=== PATIENT | male | born 1960 | race Hispanic/Latino ===

== ENCOUNTER 2018-10-26 10:12 | Emergency (ER) | payer SELFPAY ==
--- NOTE | 2018-10-26 11:00 | RAD REPORT ---
EXAM DESCRIPTION: CT - Head Brain Wo Cont - 10/26/2018 10:48 am CLINICAL HISTORY: Right-sided facial and eye lid droop for 2 days COMPARISON: None. TECHNIQUE: Axial 5 mm thick images of the head were obtained without IV contrast. All CT scans are performed using dose optimization technique as appropriate and may include automated exposure control or mA/KV adjustment according to patient size. FINDINGS: No intracranial hemorrhage, mass, edema or shift of mid-line structures. No acute infarcti on changes seen. No abnormal extra-axial fluid collections. Ventricles are normal. Physiologic and ar terial calcifications are present. No significant atrophy or chronic ischemic change. Mastoid air cells and visualized portions of the paranasal sinuses are clear. No acute bony findings. IMPRESSION: Negative non-contrast CT head examination for acute finding.
[2018-10-26] MEDS ORDERED: FLUORESCEIN SODIUM 1 MG/WRAP ONE (11:30)
[2018-10-26] MEDS ORDERED: TETRACAINE HCL 0.5% 4ML OPTH ONE (11:30)
--- NOTE | 2018-10-26 11:32 | ER ---
Nurse's Notes [facility] Name: Steven Mejia Age: 58 yrs Sex: Male : 1960 Arrival Date: 10/26/2018 Time: 10:16 Bed 18 Private MD: Diagnosis: Hernandez's palsy Presentation: 10/26 10:36 Presenting complaint: Patient states: right eyelid droop X 2 days, denies vision iw problem, denies weakness or numbness in face, denies weakness in extremities. Transition of care: patient was not received from another setting of care. Onset of symptoms was October 24, 2018. Risk Assessment: Do you want to hurt yourself or someone else? Patient reports no desire to harm self or others. Initial Sepsis Screen: Does the patient meet any 2 criteria? No. Patient's initial sepsis screen is negative. Does the patient have a suspected source of infection? No. Patient's initial sepsis screen is negative. Care prior to arrival: None. 10:36 Method Of Arrival: Ambulatory iw 10:36 Acuity: UZAIR 4 iw Historical: - Allergies: 10:38 No Known Allergies; iw - PMHx: 10:38 Diabetes - IDDM; iw - PSHx: 10:38 None; iw - Immunization history:: Adult Immunizations not up to date. - Social history:: Smoking status: Patient/guardian denies using tobacco. - Ebola Screening: : Patient negative for fever greater than or equal to 101.5 degrees Fahrenheit, and additional compatible Ebola Virus Disease symptoms Patient denies exposure to infectious person Patient denies travel to an Ebola-affected area in the 21 days before illness onset No symptoms or risks identified at this time. Screenin:45 Abuse screen: Denies threats or abuse. Nutritional screening: No deficits noted. em Tuberculosis screening: No symptoms or risk factors identified. Fall Risk None identified. Assessment: 10:45 General: Appears in no apparent distress. comfortable, Behavior is calm, cooperative, em Denies fever. Pain: Complains of pain in right eye Pain does not radiate. Pain currently is 2 out of 10 on a pain scale. Neuro: Level of Consciousness is awake, alert, obeys commands, Oriented to person, place, time, situation, Tosser are equal bilaterally Moves all extremities. Gait is steady, Speech is normal, Facial symmetry appears normal, Pupils are PERRLA, Intact Reports right eyelid droop . Denies weakness dizziness, difficulty swallowing, headache. Cardiovascular: Capillary refill < 3 seconds Patient's skin is warm and dry. Respiratory: Airway is patent Respiratory effort is even, unlabored, Respiratory pattern is regular, symmetrical. GI: Patient currently denies nausea, vomiting. EENT: Eyes droop on right eyelid . Oral mucosa is moist. Denies difficulty swallowing. Derm: Skin is intact, is healthy with good turgor, Skin is pink, warm \T\ dry. Musculoskeletal: Capillary refill < 3 seconds, Range of motion: intact in all extremities. 11:12 Reassessment: Patient appears in no apparent distress at this time. Patient and/or em family updated on plan of care and expected duration. Pain level reassessed. Patient is alert, oriented x 3, equal unlabored respirations, skin warm/dry/pink. Vital Signs: 10:38 BP 120 / 82; Pulse 80; Resp 16; Temp 98.2; Pulse Ox 96% on R/A; Pain 0/10; iw 11:57 BP 114 / 78; Pulse 76; Resp 14; Pulse Ox 97% on R/A; Pain 2/10; em Visual Acuity: 11:12 Left Eye Visual acuity 20/50, Pupil size 3 mm, ; Right Eye Visual acuity 20/50, Pupil em size 3 mm, ; Both Eyes Visual acuity 20/50; Without Lenses; ED Course: 10:16 Patient arrived in ED. mr 10:30 Bertin Mccarthy, MARCELINA is PHCP. pm1 10:30 Beau Araujo MD is Attending Physician. pm1 10:32 Frank Saez LVN is Primary Nurse. em 10:38 Triage completed. iw 10:39 Arm band placed on. iw 10:45 Patient has correct armband on for positive identification. Bed in low position. Call em light in reach. Adult w/ patient. Pulse ox on. NIBP on. 10:48 CT completed. Patient tolerated procedure well. Patient moved back from CT. mw3 10:48 CT Head Brain wo Cont In Process Unspecified. EDMS 11:56 No provider procedures requiring assistance completed. Patient did not have IV access em during this emergency room visit. Administered Medications: 11:20 Drug: Decadron 10 mg Route: IM; Site: right deltoid; em 11:38 Follow up: Response: No adverse reaction em 11:30 Drug: Tetracaine Drops 0.5 % 1 drops Route: Ophthalmic; Site: right eye; em Outcome: 11:31 Discharge ordered by . pm1 11:56 Discharged to home ambulatory, with family. em 11:56 Condition: good 11:56 Discharge instructions given to patient, family, Instructed on discharge instructions, follow up and referral plans. medication usage, Demonstrated understanding of instructions, follow-up care, medications, Prescriptions given X 2. 11:58 Patient left the ED. em Signatures: Dispatcher [employer] EDJanett Goff, Frank, PIER MASTER ASSISTANT PIER MASTER ASSISTANT em Shira Rapp RN RN iw Marinas, Patrick, NP [facility] pm1 Cindy Lee mw3
--- NOTE | 2018-10-26 11:32 | EDPHYS ---
Physician Documentation [facility] Name: Steven Mejia Age: 58 yrs Sex: Male : 1960 Arrival Date: 10/26/2018 Time: 10:16 Bed 18 Private MD: ED Physician Beau Araujo HPI: 10/26 11:30 This 58 yrs old Male presents to ER via Ambulatory with complaints of Right pm1 Eye Problem. 11:30 The patient is experiencing inability to open right eye lid, right eyelid drooping. pm1 Onset: The symptoms/episode began/occurred 2 day(s) ago. Duration: the symptoms are continuous. Aggravated by nothing. Alleviated by nothing. Associated signs and symptoms: Pertinent negatives: chills, ear ache, fever, headache, runny nose. Patient does not utilize any form of vision correction. Severity of symptoms: in the emergency department the symptoms are unchanged. The patient has not experienced similar symptoms in the past. The patient has not recently seen a physician, the patient's primary care provider is Dr. Indira crocker. No focal weakness, numbness, tingling. Historical: - Allergies: 10:38 No Known Allergies; iw - PMHx: 10:38 Diabetes - IDDM; iw - PSHx: 10:38 None; iw - Immunization history:: Adult Immunizations not up to date. - Social history:: Smoking status: Patient/guardian denies using tobacco. - Ebola Screening: : Patient negative for fever greater than or equal to 101.5 degrees Fahrenheit, and additional compatible Ebola Virus Disease symptoms Patient denies exposure to infectious person Patient denies travel to an Ebola-affected area in the 21 days before illness onset No symptoms or risks identified at this time. ROS: 11:30 Constitutional: Negative for fever, chills, and weight loss. pm1 11:30 ENT: Negative for injury, pain, and discharge, Neck: Negative for injury, pain, and swelling, Cardiovascular: Negative for chest pain, palpitations, and edema, Respiratory: Negative for shortness of breath, cough, wheezing, and pleuritic chest pain, Abdomen/GI: Negative for abdominal pain, nausea, vomiting, diarrhea, and constipation, Back: Negative for injury and pain, MS/Extremity: Negative for injury and deformity, Skin: Negative for injury, rash, and discoloration, Patient with chronic wound on right foot that he is currently taking antibiotic therapy for Neuro: Negative for headache, weakness, numbness, tingling, and seizure. 11:30 Eyes: Positive for drooping right eyelid, Negative for discharge, matting, pain, swelling, vision loss, visual disturbance. Exam: 11:30 Visual Acuity: I have reviewed the nursing documentation. pm1 11:30 Constitutional: This is a well developed, well nourished patient who is awake, alert, and in no acute distress. Head/Face: Normocephalic, atraumatic. 11:30 ENT: Nares patent. No nasal discharge, no septal abnormalities noted. Tympanic membranes are normal and external auditory canals are clear. Oropharynx with no redness, swelling, or masses, exudates, or evidence of obstruction, uvula midline. Mucous membranes moist. Neck: Trachea midline, no thyromegaly or masses palpated, and no cervical lymphadenopathy. Supple, full range of motion without nuchal rigidity, or vertebral point tenderness. No Meningismus. Chest/axilla: Normal chest wall appearance and motion. Nontender with no deformity. No lesions are appreciated. Cardiovascular: Regular rate and rhythm with a normal S1 and S2. No gallops, murmurs, or rubs. Normal PMI, no JVD. No pulse deficits. Respiratory: Lungs have equal breath sounds bilaterally, clear to auscultation and percussion. No rales, rhonchi or wheezes noted. No increased work of breathing, no retractions or nasal flaring. Abdomen/GI: Soft, non-tender, with normal bowel sounds. No distension or tympany. No guarding or rebound. No evidence of tenderness throughout. Back: No spinal tenderness. No costovertebral tenderness. Full range of motion. Skin: Warm, dry with normal turgor. Normal color with no rashes, no lesions, and no evidence of cellulitis. MS/ Extremity: Pulses equal, no cyanosis. Neurovascular intact. Full, normal range of motion. 11:30 Eyes: Periorbital structures: appear normal, Pupils: no acute changes, Extraocular movements: intact throughout, Conjunctiva: no acute changes, no chemosis, no excoriation, no exudate, no injection, no subconjunctival hemorrhage no abnormal tearing, Corneas: abrasion, is not appreciated, foreign body, is not appreciated, a fluorescein strip employed to appreciate the findings, Sclera: no appreciated abnormality, Lids and lashes: ptosis, of the right eye. 11:30 Neuro: Orientation: is normal, Motor: is normal, moves all fours, Sensation: is normal, no obvious gross deficits, right sided forehead sparing, Gait: is steady, at a normal pace, without difficulty. Vital Signs: 10:38 BP 120 / 82; Pulse 80; Resp 16; Temp 98.2; Pulse Ox 96% on R/A; Pain 0/10; iw 11:57 BP 114 / 78; Pulse 76; Resp 14; Pulse Ox 97% on R/A; Pain 2/10; em Visual Acuity: 11:12 Left Eye Visual acuity 20/50, Pupil size 3 mm, ; Right Eye Visual acuity 20/50, Pupil em size 3 mm, ; Both Eyes Visual acuity 20/50; Without Lenses; MDM: 10:30 Patient medically screened. pm1 11:30 Data reviewed: vital signs. Data interpreted: Pulse oximetry: on room air is 96 %. pm1 Interpretation: normal. Counseling: I had a detailed discussion with the patient and/or guardian regarding: the historical points, exam findings, and any diagnostic results supporting the discharge/admit diagnosis, radiology results, the need for outpatient follow up, a neurologist, to return to the emergency department if symptoms worsen or persist or if there are any questions or concerns that arise at home. 10/26 10:36 Order name: CT Head Brain wo Cont; Complete Time: 11:00 pm1 10/26 10:36 Order name: Visual Acuity; Complete Time: 11:11 pm1 10/26 11:09 Order name: Eye Tray; Complete Time: 11:11 pm1 10/26 11:09 Order name: Fluoresene Opth strip; Complete Time: 11:11 pm1 Administered Medications: 11:20 Drug: Decadron 10 mg Route: IM; Site: right deltoid; em 11:38 Follow up: Response: No adverse reaction em 11:30 Drug: Tetracaine Drops 0.5 % 1 drops Route: Ophthalmic; Site: right eye; em Disposition: 10/26/18 11:31 Discharged to Home. Impression: Hernandez's palsy. - Condition is Stable. - Discharge Instructions: Hernandez Palsy, Adult. - Prescriptions for Prednisone 20 mg Oral Tablet - take 3 tablets by ORAL route once daily for 5 days Take 3 tablets by mouth once daily for 5 days, then 2 tablets by mouth daily for 3 days, then 1 tablets by mouth for 2 days; 23 tablet. Valtrex 1 g Oral Tablet - take 1 tablet by ORAL route every 8 hours for 5 days; 15 tablet. - Medication Reconciliation Form, Thank You Letter, Antibiotic Education, Prescription Opioid Use form. - Follow up: Emergency Department; When: As needed; Reason: Worsening of condition. Follow up: Private Physician; When: 2 - 3 days; Reason: Recheck today's complaints, Continuance of care, Re-evaluation by your physician. - Problem is new. - Symptoms have improved. Addendum: 10/30/2018 02:11 Co-signature as Attending Physician, Beau Araujo MD. m a2 Signatures: Dispatcher [employer] EDFrank Harvey, QUALITY LIAISON QUALITY LIAISON em Shira Rapp RN RN iw Bertin Mccarthy NP [employer] RESEARCHER pm1 Beau Araujo MD MD ma2 Corrections: (The following items were deleted from the chart) 10/26 11:58 11:31 10/26/2018 11:31 Discharged to Home. Impression: Hernandez's palsy. Condition is em Stable. Discharge Instructions: Hernandez Palsy, Adult. Prescriptions for Prednisone 20 mg Oral Tablet - take 3 tablets by ORAL route once daily for 5 days Take 3 tablets by mouth once daily for 5 days, then 2 tablets by mouth daily for 3 days, then 1 tablets by mouth for 2 days; 23 tablet, Valtrex 1 g Oral Tablet - take 1 tablet by ORAL route every 8 hours for 5 days; 15 tablet. and Forms are Medication Reconciliation Form, Thank You Letter, Antibiotic Education, Prescription Opioid Use. Follow up: Emergency Department; When: As needed; Reason: Worsening of condition. Follow up: Private Physician; When: 2 - 3 days; Reason: Recheck today's complaints, Continuance of care, Re-evaluation by your physician. Problem is new. Symptoms have improved. pm1
[2018-10-26] MEDS ORDERED: dexAMETHasone 10 MG/ML VIAL ONE (11:33)
== END 2018-10-26 11:58 | disposition home or self-care (01) ==
LOC: ER 10:12
DX: G51.0 Bell's palsy (principal); E11.9 Type 2 diabetes mellitus without complications
CPT/HCPCS: 70450; 96372; 99284; J1100

== ENCOUNTER 2022-11-26 07:26 | Emergency (ER) | payer OTHER, SELFPAY ==
--- OUTSIDE RECORDS SUMMARY | 2022-11-26 07:33 | XMS REPORT | Continuity of Care Document ---
:1960 Author Organization [facility] t Address [address] [place] [address] Care Team Providers Name Role Phone Sanaz Tidwell Primary Care Physician [phone] Problems This patient has no known problems. Allergies, Adverse Reactions, Alerts This patient has no known allergies or adverse reactions. Medications Ordered Filled Start Stop Current Ordering Indication Dosage Frequency Signature Comments Components Source Medication Medication Date Date Medication? Clinician (SIG) Name Name TAKE 2021-04 No unit TABLET 2-14 DAILY. 00:00: 00 INJECT 33 2021-04 No UNITS SC 2-14 BEFORE 00:00: MEALS 00 Dose 2021- No Unknown 2-14 00:00: 00 LEVEMIR 100 2021-04 No UNIT/ML 2-14 VIAL 00:00: 00 BYDUREON 2021-04 No BCISE 2 MG 2-14 AUTOINJECT 00:00: 00 GLIMEPIRIDE 2021-04 No 4 MG TABLET 2-14 00:00: 00 &lt 2021-0 No 25 8-08 00:00: 00 &lt 2021-0 No 8-08 00:00: 00 TAKE 1 2021-0 No 4 TABLET BY 8-08 MOUTH TWICE 00:00: DAILY WITH 00 BREAKFAST AND WITH SUPPER LISINOPRIL 0 No 2.5 MG 8-08 TABLET 00:00: 00 METFORMIN 2021-0 No HCL 1,000 8-08 MG TABLET 00:00: 00 TAKE 1 0 No 4 TABLET BY 8-08 MOUTH TWICE 00:00: DAILY WITH 00 BREAKFAST AND WITH SUPPER Bydureon No 2mg/0.8 BCise 2 5-24 5 mL mg/0.85 mL 00:00: subcutaneou 00 s auto-inject or Dose 2-0 No Unknown 5-24 00:00: 00 Levemir 2022-0 No unit/mL U-100 5-24 Insulin 100 00:00: unit/mL 00 subcutaneou s solution Levemir 2022-0 No unit/mL U-100 5-24 Insulin 100 00:00: unit/mL 00 subcutaneou s solution Novolin R 2022-0 No unit/mL Regular 5-24 U-100 00:00: Insulin 100 00 unit/mL injection solution Novolin R 2022-0 No unit/mL Regular 5-24 U-100 00:00: Insulin 100 00 unit/mL injection solution rosuvastati 2-0 No 1mg n 20 mg 5-24 tablet 00:00: 00 Dose 2022-0 No Unknown 5-24 00:00: 00 metformin 2022-0 No 1mg 1,000 mg 5-24 tablet 00:00: 00 glimepiride 2022-0 No 1mg 4 mg tablet 5-24 00:00: 00 glimepiride 2022-0 No 1mg 4 mg tablet 5-24 00:00: 00 metformin 2022-0 No 1mg 1,000 mg 5-24 tablet 00:00: 00 Dose 2022-0 No Unknown 5-24 00:00: 00 Bydureon 2022-0 No 2mg/0.8 BCise 2 5-24 5 mL mg/0.85 mL 00:00: subcutaneou 00 s auto-inject or Dose 2-0 No Unknown 5-24 00:00: 00 Levemir 2022-0 No unit/mL U-100 5-24 Insulin 100 00:00: unit/mL 00 subcutaneou s solution Levemir 2022-0 No unit/mL U-100 5-24 Insulin 100 00:00: unit/mL 00 subcutaneou s solution Novolin R 2022-0 No unit/mL Regular 5-24 U-100 00:00: Insulin 100 00 unit/mL injection solution Dose 2022-0 No Unknown 5-24 00:00: 00 rosuvastati 2022-0 No 1mg n 20 mg 5-24 tablet 00:00: 00 Dose 2022-0 No Unknown 5-24 00:00: 00 metformin 2022-0 No 1mg 1,000 mg 5-24 tablet 00:00: 00 glimepiride 2022-0 No 1mg 4 mg tablet 5-24 00:00: 00 metformin 2022-0 No 1mg 1,000 mg 5-24 tablet 00:00: 00 Dose 2022-0 No 20 Unknown 5-24 00:00: 00 Dose 2022-0 No Unknown 5-24 00:00: 00 rosuvastati 2022-0 No 1mg n 20 mg 4-09 tablet 00:00: 00 rosuvastati 2022-0 No 1mg n 20 mg 4-09 tablet 00:00: 00 Levemir 2022-0 No unit/mL U-100 1-19 Insulin 100 00:00: unit/mL 00 subcutaneou s solution Novolin R 2-0 No unit/mL Regular 1-19 U-100 00:00: Insulin 100 00 unit/mL injection solution Levemir 2-0 No unit/mL U-100 1-19 Insulin 100 00:00: unit/mL 00 subcutaneou s solution Dose 2-0 No Unknown 1-19 00:00: 00 Dose 2022-0 No Unknown 1-18 00:00: 00 Dose 2-0 No Unknown 1-18 00:00: 00 Dose 2-0 No Unknown 1-12 00:00: 00 Levemir 2022-0 No unit/mL U-100 1-12 Insulin 100 00:00: unit/mL 00 subcutaneou s solution Novolin R 2022-0 No unit/mL Regular 1-12 U-100 00:00: Insulin 100 00 unit/mL injection solution Dose 2-0 No Unknown 1-12 00:00: 00 metformin 2022-0 No 1mg 1,000 mg 1-12 tablet 00:00: 00 glimepiride 2-0 No 1mg 4 mg tablet 1-12 00:00: 00 Dose 2022-0 No Unknown 1-12 00:00: 00 Levemir 2022-0 No unit/mL U-100 1-12 Insulin 100 00:00: unit/mL 00 subcutaneou s solution Dose 2-0 No Unknown 1-12 00:00: 00 Dose 2022-0 No Unknown 1-12 00:00: 00 metformin 2-0 No 1mg 1,000 mg 1-12 tablet 00:00: 00 Dose 2022-0 No 20 Unknown 1-12 00:00: 00 Dose 2021-0 No Unknown 01-11 00:00: 00 Dose 2021-0 No Unknown 01-11 00:00: 00 Levemir 2021-0 No unit/mL U-100 9-16 Insulin 100 00:00: unit/mL 00 subcutaneou s solution Novolin R 2021-0 No unit/mL Regular 9-16 U-100 00:00: Insulin 100 00 unit/mL injection solution lisinopril 2021-0 No 1mg 2.5 mg 9-16 tablet 00:00: 00 rosuvastati 2021-0 No 1mg n 20 mg 9-16 tablet 00:00: 00 glimepiride 2021-0 No 1mg 4 mg tablet 16 00:00: 00 metformin 2021-0 No 1mg 1,000 mg 9-16 tablet 00:00: 00 Levemir 2021-0 No unit/mL U-100 9-16 Insulin 100 00:00: unit/mL 00 subcutaneou s solution Dose 1-0 No Unknown 01-05 00:00: 00 lisinopril 2021-0 No 1mg 2.5 mg 9-16 tablet 00:00: 00 rosuvastati 2021-0 No 1mg n 20 mg 9-16 tablet 00:00: 00 glimepiride 2021-0 No 1mg 4 mg tablet 16 00:00: 00 metformin 2021-0 No 1mg 1,000 mg 9-16 tablet 00:00: 00 Levemir 2021-0 No unit/mL U-100 8-12 Insulin 100 00:00: unit/mL 00 subcutaneou s solution Levemir 2021-0 No unit/mL U-100 8-12 Insulin 100 00:00: unit/mL 00 subcutaneou s solution Levemir 2021-0 No unit/mL U-100 4-06 Insulin 100 00:00: unit/mL 00 subcutaneou s solution Novolin R 2021-0 No unit/mL Regular 4-06 U-100 00:00: Insulin 100 00 unit/mL injection solution rosuvastati 2021-0 No 1mg n 20 mg 4-06 tablet 00:00: 00 lisinopril 2021-0 No 1mg 2.5 mg 4-06 tablet 00:00: 00 glimepiride 2021-0 No 1mg 4 mg tablet 4-06 00:00: 00 Levemir 2021-0 No unit/mL U-100 4-06 Insulin 100 00:00: unit/mL 00 subcutaneou s solution Dose 2020-0 No Unknown 4-06 00:00: 00 rosuvastati 2021-0 No 1mg n 20 mg 4-06 tablet 00:00: 00 lisinopril 2021-0 No 1mg 2.5 mg 4-06 tablet 00:00: 00 glimepiride 2021-0 No 1mg 4 mg tablet 06 00:00: 00 Levemir 2021-0 No unit/mL U-100 3-22 Insulin 100 00:00: unit/mL 00 subcutaneou s solution Novolin R 2021-0 No unit/mL Regular 3-22 U-100 00:00: Insulin 100 00 unit/mL injection solution Levemir 1-0 No unit/mL U-100 3-22 Insulin 100 00:00: unit/mL 00 subcutaneou s solution Novolin R 2021-0 No unit/mL Regular 3-22 U-100 00:00: Insulin 100 00 unit/mL injection solution testosteron 1-0 No mg/mL e cypionate 1-20 200 mg/mL 00:00: intramuscul 00 ar oil Dose 2020-0 No Unknown 1-20 00:00: 00 Levemir 2021-0 No unit/mL U-100 1-07 Insulin 100 00:00: unit/mL 00 subcutaneou s solution Novolin R 2021-0 No unit/mL Regular 1-07 U-100 00:00: Insulin 100 00 unit/mL injection solution lisinopril 2021-0 No 1mg 2.5 mg 1-07 tablet 00:00: 00 metformin 2021-0 No 1mg 1,000 mg 1-07 tablet 00:00: 00 lovastatin 2021-0 No 1mg 20 mg 1-07 tablet 00:00: 00 Levemir 2021-0 No unit/mL U-100 1-07 Insulin 100 00:00: unit/mL 00 subcutaneou s solution Novolin R 2021-0 No unit/mL Regular 1-07 U-100 00:00: Insulin 100 00 unit/mL injection solution lisinopril 1-0 No 1mg 2.5 mg 1-07 tablet 00:00: 00 metformin 1-0 No 1mg 1,000 mg 1-07 tablet 00:00: 00 lovastatin 1-0 No 1mg 20 mg 1-07 tablet 00:00: 00 Levemir 2020-1 No unit/mL U-100 0-22 Insulin 100 00:00: unit/mL 00 subcutaneou s solution Levemir 2020-1 No unit/mL U-100 0-22 Insulin 100 00:00: unit/mL 00 subcutaneou s solution Novolin R 2020-1 No unit/mL Regular 0-22 U-100 00:00: Insulin 100 00 unit/mL injection solution Levemir 2020-1 No unit/mL U-100 0-22 Insulin 100 00:00: unit/mL 00 subcutaneou s solution Levemir 2020-1 No unit/mL U-100 0-22 Insulin 100 00:00: unit/mL 00 subcutaneou s solution Novolin R 2020-1 No unit/mL Regular 0-22 U-100 00:00: Insulin 100 00 unit/mL injection solution glimepiride 2020-1 No 1mg 4 mg tablet 0-07 00:00: 00 glimepiride 2020-1 No 1mg 4 mg tablet 0-07 00:00: 00 Levemir 2020-1 No unit/mL U-100 0-06 Insulin 100 00:00: unit/mL 00 subcutaneou s solution Levemir 2020-1 No unit/mL U-100 0-06 Insulin 100 00:00: unit/mL 00 subcutaneou s solution Novolin R 2020-1 No unit/mL Regular 0-06 U-100 00:00: Insulin 100 00 unit/mL injection solution Novolin R 2020-1 No unit/mL Regular 0-06 U-100 00:00: Insulin 100 00 unit/mL injection solution lisinopril 2020-1 No 1mg 2.5 mg 0-06 tablet 00:00: 00 lisinopril 2020-1 No 1mg 2.5 mg 0-06 tablet 00:00: 00 metformin 2020-1 No 1mg 1,000 mg 0-06 tablet 00:00: 00 metformin 2020-1 No 1mg 1,000 mg 0-06 tablet 00:00: 00 lovastatin 2020-1 No 1mg 20 mg 0-06 tablet 00:00: 00 lovastatin 2020-1 No 1mg 20 mg 0-06 tablet 00:00: 00 Levemir 2020-1 No unit/mL U-100 0-06 Insulin 100 00:00: unit/mL 00 subcutaneou s solution Levemir 2020-1 No unit/mL U-100 0-06 Insulin 100 00:00: unit/mL 00 subcutaneou s solution Novolin R 2020-1 No unit/mL Regular 0-06 U-100 00:00: Insulin 100 00 unit/mL injection solution Novolin R 2020-1 No unit/mL Regular 0-06 U-100 00:00: Insulin 100 00 unit/mL injection solution lisinopril 2020-1 No 1mg 2.5 mg 0-06 tablet 00:00: 00 lisinopril 2020-1 No 1mg 2.5 mg 0-06 tablet 00:00: 00 metformin 2020-1 No 1mg 1,000 mg 0-06 tablet 00:00: 00 metformin 2020-1 No 1mg 1,000 mg 0-06 tablet 00:00: 00 lovastatin 2020-1 No 1mg 20 mg 0-06 tablet 00:00: 00 lovastatin 2020-1 No 1mg 20 mg 0-06 tablet 00:00: 00 Levemir 2020-0 No unit/mL U-100 9-12 Insulin 100 00:00: unit/mL 00 subcutaneou s solution Novolin R 2020-0 No unit/mL Regular 9-12 U-100 00:00: Insulin 100 00 unit/mL injection solution lovastatin 2020-0 No 1mg 20 mg 9-12 tablet 00:00: 00 lisinopril 2020-0 No 1mg 2.5 mg 9-12 tablet 00:00: 00 metformin 2020-0 No 1mg 1,000 mg 9-12 tablet 00:00: 00 Levemir 2020-0 No unit/mL U-100 9-12 Insulin 100 00:00: unit/mL 00 subcutaneou s solution Novolin R 2020-0 No unit/mL Regular 9-12 U-100 00:00: Insulin 100 00 unit/mL injection solution lovastatin 2020-0 No 1mg 20 mg 9-12 tablet 00:00: 00 lisinopril 2020-0 No 1mg 2.5 mg 9-12 tablet 00:00: 00 metformin 2020-0 No 1mg 1,000 mg 9-12 tablet 00:00: 00 Levemir 2020-0 No unit/mL U-100 6-29 Insulin 100 00:00: unit/mL 00 subcutaneou s solution Novolin R 2020-0 No unit/mL Regular 6-29 U-100 00:00: Insulin 100 00 unit/mL injection solution Levemir 2020-0 No unit/mL U-100 6-29 Insulin 100 00:00: unit/mL 00 subcutaneou s solution Novolin R 2020-0 No unit/mL Regular 6-29 U-100 00:00: Insulin 100 00 unit/mL injection solution Levemir 2020-0 No unit/mL U-100 6-26 Insulin 100 00:00: unit/mL 00 subcutaneou s solution Levemir 2020-0 No unit/mL U-100 6-26 Insulin 100 00:00: unit/mL 00 subcutaneou s solution Levemir 2019-1 No unit/mL U-100 2-05 Insulin 100 00:00: unit/mL 00 subcutaneou s solution Levemir 2019-1 No unit/mL U-100 2-05 Insulin 100 00:00: unit/mL 00 subcutaneou s solution Levemir 2019-1 No unit/mL U-100 0-16 Insulin 100 00:00: unit/mL 00 subcutaneou s solution Novolin R 2019-1 No unit/mL Regular 0-16 U-100 00:00: Insulin 100 00 unit/mL injection solution Levemir 2019-1 No unit/mL U-100 0-16 Insulin 100 00:00: unit/mL 00 subcutaneou s solution Novolin R 2019-1 No unit/mL Regular 0-16 U-100 00:00: Insulin 100 00 unit/mL injection solution Cipro 500 2019-0 No 1mg mg tablet 10-27 00:00: 00 Cipro 500 2019-0 No 1mg mg tablet 10-27 00:00: 00 Cipro 500 2019-0 No 1mg mg tablet 10-16 00:00: 00 Cipro 500 2019-0 No 1mg mg tablet 27 00:00: 00 Cleocin HCl 2019-0 No 1mg 300 mg 6-20 capsule 00:00: 00 Cleocin HCl 2019-0 No 1mg 300 mg 6-20 capsule 00:00: 00 Levemir 2019-0 No unit/mL U-100 6-17 Insulin 100 00:00: unit/mL 00 subcutaneou s solution Novolin R 2019-0 No unit/mL Regular 6-17 U-100 00:00: Insulin 100 00 unit/mL injection solution lisinopril 2019-0 No 1mg 2.5 mg 6-17 tablet 00:00: 00 lovastatin 2019-0 No 1mg 20 mg 6-17 tablet 00:00: 00 Viagra 100 2019-0 No 1mg mg tablet 6-17 00:00: 00 metformin 2019-0 No 1mg 1,000 mg 6-17 tablet 00:00: 00 Levemir 2019-0 No unit/mL U-100 6-17 Insulin 100 00:00: unit/mL 00 subcutaneou s solution Novolin R 2019-0 No unit/mL Regular 6-17 U-100 00:00: Insulin 100 00 unit/mL injection solution lisinopril 2019-0 No 1mg 2.5 mg 6-17 tablet 00:00: 00 lovastatin 2019-0 No 1mg 20 mg 6-17 tablet 00:00: 00 Viagra 100 2019-0 No 1mg mg tablet 6-17 00:00: 00 metformin 2019-0 No 1mg 1,000 mg 6-17 tablet 00:00: 00 Santyl 250 2019-0 No 1unit/g unit/gram 5-29 carlton topical 00:00: ointment 00 sulfamethox 2019-0 No 1mg azole 800 5-29 mg-trimetho 00:00: prim 160 mg 00 tablet indomethaci 2019-0 No 1mg n 50 mg 5-29 capsule 00:00: 00 Santyl 250 2019-0 No 1unit/g unit/gram 5-29 carlton topical 00:00: ointment 00 sulfamethox 2019-0 No 1mg azole 800 5-29 mg-trimetho 00:00: prim 160 mg 00 tablet indomethaci 2019-0 No 1mg n 50 mg 5-29 capsule 00:00: 00 Levemir 2019-0 No unit/mL U-100 3-25 Insulin 100 00:00: unit/mL 00 subcutaneou s solution Novolin R 2019-0 No unit/mL Regular 3-25 U-100 00:00: Insulin 100 00 unit/mL injection solution Viagra 100 2019-0 No 1mg mg tablet 3-25 00:00: 00 lisinopril 2019-0 No 1mg 2.5 mg 3-25 tablet 00:00: 00 lovastatin 2019-0 No 1mg 20 mg 3-25 tablet 00:00: 00 metformin 2019-0 No 1mg 1,000 mg 3-25 tablet 00:00: 00 Levemir 2019-0 No unit/mL U-100 3-25 Insulin 100 00:00: unit/mL 00 subcutaneou s solution Novolin R 2019-0 No unit/mL Regular 3-25 U-100 00:00: Insulin 100 00 unit/mL injection solution Viagra 100 2019-0 No 1mg mg tablet 3-25 00:00: 00 lisinopril 2019-0 No 1mg 2.5 mg 3-25 tablet 00:00: 00 lovastatin 2019-0 No 1mg 20 mg 3-25 tablet 00:00: 00 metformin 2019-0 No 1mg 1,000 mg 3-25 tablet 00:00: 00 Levemir 2019-0 No unit/mL U-100 1-16 Insulin 100 00:00: unit/mL 00 subcutaneou s solution Novolin R 2019-0 No unit/mL Regular 1-16 U-100 00:00: Insulin 100 00 unit/mL injection solution Levemir 2019-0 No unit/mL U-100 1-16 Insulin 100 00:00: unit/mL 00 subcutaneou s solution Novolin R 2019-0 No unit/mL Regular 1-16 U-100 00:00: Insulin 100 00 unit/mL injection solution lisinopril 2019-0 No 1mg 2.5 mg 1-02 tablet 00:00: 00 lovastatin 2019-0 No 1mg 20 mg 1-02 tablet 00:00: 00 metformin 2019-0 No 1mg 1,000 mg 1-02 tablet 00:00: 00 lisinopril 2019-0 No 1mg 2.5 mg 1-02 tablet 00:00: 00 lovastatin 2019-0 No 1mg 20 mg 1-02 tablet 00:00: 00 metformin 2019-0 No 1mg 1,000 mg -02 tablet 00:00: 00 Levemir 2018-1 No unit/mL U-100 1-26 Insulin 100 00:00: unit/mL 00 subcutaneou s solution Novolin R 2017-1 No unit/mL Regular 1-26 U-100 00:00: Insulin 100 00 unit/mL injection solution Levemir 2017-1 No unit/mL U-100 1-26 Insulin 100 00:00: unit/mL 00 subcutaneou s solution Novolin R 2017-1 No unit/mL Regular 1-26 U-100 00:00: Insulin 100 00 unit/mL injection solution Levemir 2017-1 No unit/mL U-100 1-05 Insulin 100 00:00: unit/mL 00 subcutaneou s solution Levemir 2017-1 No unit/mL U-100 1-05 Insulin 100 00:00: unit/mL 00 subcutaneou s solution Levemir 2018-1 No unit/mL U-100 1-05 Insulin 100 00:00: unit/mL 00 subcutaneou s solution Novolin R 2018-1 No unit/mL Regular 1-05 U-100 00:00: Insulin 100 00 unit/mL injection solution Novolin R 2018-1 No unit/mL Regular 1-05 U-100 00:00: Insulin 100 00 unit/mL injection solution Levemir 2018-1 No unit/mL U-100 1-05 Insulin 100 00:00: unit/mL 00 subcutaneou s solution Levemir 2018-1 No unit/mL U-100 1-05 Insulin 100 00:00: unit/mL 00 subcutaneou s solution Levemir 2018-1 No unit/mL U-100 1-05 Insulin 100 00:00: unit/mL 00 subcutaneou s solution Novolin R 2018-1 No unit/mL Regular 1-05 U-100 00:00: Insulin 100 00 unit/mL injection solution Novolin R 2018-1 No unit/mL Regular 1-05 U-100 00:00: Insulin 100 00 unit/mL injection solution Levemir 2018-1 No unit/mL U-100 0-29 Insulin 100 00:00: unit/mL 00 subcutaneou s solution Novolin R 2018-1 No unit/mL Regular 0-29 U-100 00:00: Insulin 100 00 unit/mL injection solution Levemir 2018-1 No unit/mL U-100 0-29 Insulin 100 00:00: unit/mL 00 subcutaneou s solution Novolin R 2018-1 No unit/mL Regular 0-29 U-100 00:00: Insulin 100 00 unit/mL injection solution lisinopril 2018-1 No 1mg 2.5 mg 0-15 tablet 00:00: 00 lovastatin 2018-1 No 1mg 20 mg 0-15 tablet 00:00: 00 metformin 2018-1 No 1mg 1,000 mg 0-15 tablet 00:00: 00 lisinopril 2018-1 No 1mg 2.5 mg 0-15 tablet 00:00: 00 lovastatin 2018-1 No 1mg 20 mg 0-15 tablet 00:00: 00 metformin 2018-1 No 1mg 1,000 mg 0-15 tablet 00:00: 00 Levemir 2018-1 No unit/mL U-100 0-03 Insulin 100 00:00: unit/mL 00 subcutaneou s solution Novolin R 2017-1 No unit/mL Regular 0-03 U-100 00:00: Insulin 100 00 unit/mL injection solution Levemir 2017-1 No unit/mL U-100 0-03 Insulin 100 00:00: unit/mL 00 subcutaneou s solution Novolin R 2018-1 No unit/mL Regular 0-03 U-100 00:00: Insulin 100 00 unit/mL injection solution Levemir 2018-0 No unit/mL U-100 917 Insulin 100 00:00: unit/mL 00 subcutaneou s solution Novolin R 2018-0 No unit/mL Regular 9-17 U-100 00:00: Insulin 100 00 unit/mL injection solution Levemir 2018-0 No unit/mL U-100 9-17 Insulin 100 00:00: unit/mL 00 subcutaneou s solution Novolin R 2018-0 No unit/mL Regular 9-17 U-100 00:00: Insulin 100 00 unit/mL injection solution Levemir 2018-0 No unit/mL U-100 9-04 Insulin 100 00:00: unit/mL 00 subcutaneou s solution Novolin R 2018-0 No unit/mL Regular 9-04 U-100 00:00: Insulin 100 00 unit/mL injection solution Levemir 2018-0 No unit/mL U-100 9 Insulin 100 00:00: unit/mL 00 subcutaneou s solution Novolin R 2018-0 No unit/mL Regular 9 U-100 00:00: Insulin 100 00 unit/mL injection solution Levemir 2018-0 No unit/mL U-100 8 Insulin 100 00:00: unit/mL 00 subcutaneou s solution Novolin R 2018-0 No unit/mL Regular 8 U-100 00:00: Insulin 100 00 unit/mL injection solution Levemir 2018-0 No unit/mL U-100 8 Insulin 100 00:00: unit/mL 00 subcutaneou s solution Novolin R 2018-0 No unit/mL Regular 11-22 U-100 00:00: Insulin 100 00 unit/mL injection solution Levemir 2018-0 No unit/mL U-100 11-06 Insulin 100 00:00: unit/mL 00 subcutaneou s solution Novolin R 2018-0 No unit/mL Regular 11-06 U-100 00:00: Insulin 100 00 unit/mL injection solution metformin 2018-0 No 1mg 1,000 mg 7-18 tablet 00:00: 00 Levemir 2018-0 No unit/mL U-100 11-06 Insulin 100 00:00: unit/mL 00 subcutaneou s solution Novolin R 2018-0 No unit/mL Regular 11-06 U-100 00:00: Insulin 100 00 unit/mL injection solution metformin 2018-0 No 1mg 1,000 mg 7-18 tablet 00:00: 00 Levemir 2018-0 No unit/mL U-100 10-28 Insulin 100 00:00: unit/mL 00 subcutaneou s solution Novolin R 2018-0 No unit/mL Regular 10-28 U-100 00:00: Insulin 100 00 unit/mL injection solution Levemir 2018-0 No unit/mL U-100 10-28 Insulin 100 00:00: unit/mL 00 subcutaneou s solution Novolin R 2018-0 No unit/mL Regular 7- U-100 00:00: Insulin 100 00 unit/mL injection solution Levemir 2018-0 No unit/mL U-100 10-08 Insulin 100 00:00: unit/mL 00 subcutaneou s solution Levemir 2018-0 No unit/mL U-100 6-19 Insulin 100 00:00: unit/mL 00 subcutaneou s solution Novolin R 2018-0 No unit/mL Regular 6-19 U-100 00:00: Insulin 100 00 unit/mL injection solution Novolin R 2018-0 No unit/mL Regular 6-19 U-100 00:00: Insulin 100 00 unit/mL injection solution lisinopril 2018-0 No 1mg 2.5 mg 6-19 tablet 00:00: 00 Levemir 2018-0 No unit/mL U-100 6- Insulin 100 00:00: unit/mL 00 subcutaneou s solution Levemir 2018-0 No unit/mL U-100 10-08 Insulin 100 00:00: unit/mL 00 subcutaneou s solution Novolin R 2018-0 No unit/mL Regular 6- U-100 00:00: Insulin 100 00 unit/mL injection solution Novolin R 2018-0 No unit/mL Regular 6 U-100 00:00: Insulin 100 00 unit/mL injection solution lisinopril 2018-0 No 1mg 2.5 mg 6-19 tablet 00:00: 00 Levemir 2018-0 No unit/mL U-100 6 Insulin 100 00:00: unit/mL 00 subcutaneou s solution Levemir 2018-0 No unit/mL U-100 09-20 Insulin 100 00:00: unit/mL 00 subcutaneou s solution Novolin R 2018-0 No unit/mL Regular 6- U-100 00:00: Insulin 100 00 unit/mL injection solution Levemir 2018-0 No unit/mL U-100 09-20 Insulin 100 00:00: unit/mL 00 subcutaneou s solution Levemir 2018-0 No unit/mL U-100 6 Insulin 100 00:00: unit/mL 00 subcutaneou s solution Novolin R 2018-0 No unit/mL Regular 6- U-100 00:00: Insulin 100 00 unit/mL injection solution Levemir 2018-0 No unit/mL U-100 08-22 Insulin 100 00:00: unit/mL 00 subcutaneou s solution Novolin R 2018-0 No unit/mL Regular 5- U-100 00:00: Insulin 100 00 unit/mL injection solution Levemir 2018-0 No unit/mL U-100 5-03 Insulin 100 00:00: unit/mL 00 subcutaneou s solution Novolin R 2018-0 No unit/mL Regular 5-03 U-100 00:00: Insulin 100 00 unit/mL injection solution metformin 2018-0 No 1mg 1,000 mg 4-26 tablet 00:00: 00 metformin 2018-0 No 1mg 1,000 mg 4-26 tablet 00:00: 00 Levemir 2018-0 No unit/mL U-100 4-18 Insulin 100 00:00: unit/mL 00 subcutaneou s solution lovastatin 2018-0 No 1mg 20 mg 4-18 tablet 00:00: 00 Levemir 2018-0 No unit/mL U-100 4-18 Insulin 100 00:00: unit/mL 00 subcutaneou s solution lovastatin 2018-0 No 1mg 20 mg 4-18 tablet 00:00: 00 ampicillin 2018-0 No 1mg 500 mg 4-13 capsule 00:00: 00 ampicillin 2018-0 No 1mg 500 mg 4-13 capsule 00:00: 00 mupirocin 2 2018-0 No 1% % topical 4-05 ointment 00:00: 00 Cleocin HCl 2018-0 No 1mg 300 mg 4-05 capsule 00:00: 00 mupirocin 2 2018-0 No 1% % topical 4-05 ointment 00:00: 00 Cleocin HCl 2018-0 No 1mg 300 mg 4-05 capsule 00:00: 00 Levemir 2018-0 No unit/mL U-100 -02 Insulin 100 00:00: unit/mL 00 subcutaneou s solution Novolin R 2018-0 No unit/mL Regular 4-02 U-100 00:00: Insulin 100 00 unit/mL injection solution Levemir 2018-0 No unit/mL U-100 4-02 Insulin 100 00:00: unit/mL 00 subcutaneou s solution Novolin R 2018-0 No unit/mL Regular 4-02 U-100 00:00: Insulin 100 00 unit/mL injection solution Levemir 2018-0 No unit/mL U-100 06-26 Insulin 100 00:00: unit/mL 00 subcutaneou s solution Levemir 2018-0 No unit/mL U-100 3-07 Insulin 100 00:00: unit/mL 00 subcutaneou s solution Novolin R 2018-0 No unit/mL Regular 3-07 U-100 00:00: Insulin 100 00 unit/mL injection solution Novolin R 2018-0 No unit/mL Regular 3- U-100 00:00: Insulin 100 00 unit/mL injection solution mupirocin 2 2018-0 No 1% % topical 3-07 ointment 00:00: 00 sulfamethox 2018-0 No 1mg azole 800 3-07 mg-trimetho 00:00: prim 160 mg 00 tablet Levemir 2018-0 No unit/mL U-100 06-26 Insulin 100 00:00: unit/mL 00 subcutaneou s solution Levemir 2018-0 No unit/mL U-100 06-26 Insulin 100 00:00: unit/mL 00 subcutaneou s solution Novolin R 2018-0 No unit/mL Regular 3 U-100 00:00: Insulin 100 00 unit/mL injection solution Novolin R 2018-0 No unit/mL Regular 06-26 U-100 00:00: Insulin 100 00 unit/mL injection solution mupirocin 2 2018-0 No 1% % topical 3-07 ointment 00:00: 00 sulfamethox 2018-0 No 1mg azole 800 3-07 mg-trimetho 00:00: prim 160 mg 00 tablet Levemir 2018-0 No unit/mL U-100 05-20 Insulin 100 00:00: unit/mL 00 subcutaneou s solution Novolin R 2018-0 No unit/mL Regular - U-100 00:00: Insulin 100 00 unit/mL injection solution Levemir 2018-0 No unit/mL U-100 - Insulin 100 00:00: unit/mL 00 subcutaneou s solution Novolin R 2018-0 No unit/mL Regular - U-100 00:00: Insulin 100 00 unit/mL injection solution Levemir 100 2018-0 No unit/mL unit/mL 05-15 subcutaneou 00:00: s solution 00 Novolin R 2018-0 No unit/mL 100 unit/mL -24 injection 00:00: solution 00 Levemir 100 2018-0 No unit/mL unit/mL 05-15 subcutaneou 00:00: s solution 00 Novolin R 2018-0 No unit/mL 100 unit/mL 1-24 injection 00:00: solution 00 mupirocin 2 2018-0 No 1% % topical 1-04 ointment 00:00: 00 mupirocin 2 2018-0 No 1% % topical 1-04 ointment 00:00: 00 Levemir 100 2018-0 No unit/mL unit/mL 1-03 subcutaneou 00:00: s solution 00 Levemir 100 2018-0 No unit/mL unit/mL 1-03 subcutaneou 00:00: s solution 00 Novolin R 2018-0 No unit/mL 100 unit/mL 1-03 injection 00:00: solution 00 Novolin R 2018-0 No unit/mL 100 unit/mL 1-03 injection 00:00: solution 00 Levemir 100 2018-0 No unit/mL unit/mL 1-03 subcutaneou 00:00: s solution 00 Levemir 100 2018-0 No unit/mL unit/mL 1-03 subcutaneou 00:00: s solution 00 Novolin R 2018-0 No unit/mL 100 unit/mL 1-03 injection 00:00: solution 00 Novolin R 2018-0 No unit/mL 100 unit/mL 1-03 injection 00:00: solution 00 lisinopril 2017-1 No 1mg 5 mg tablet 2-20 00:00: 00 metformin 2017-1 No 1mg 1,000 mg 2-20 tablet 00:00: 00 lisinopril 2017-1 No 1mg 5 mg tablet 2-20 00:00: 00 metformin 2017-1 No 1mg 1,000 mg 2-20 tablet 00:00: 00 lovastatin 2017-1 No 2mg 20 mg 2-20 tablet 00:00: 00 lovastatin 2017-1 No 2mg 20 mg 2-20 tablet 00:00: 00 Levemir 100 2017-1 No unit/mL unit/mL 2-13 subcutaneou 00:00: s solution 00 Novolin R 2017-1 No unit/mL 100 unit/mL 2-13 injection 00:00: solution 00 Levemir 100 2017-1 No unit/mL unit/mL 2-13 subcutaneou 00:00: s solution 00 Novolin R 2017-1 No unit/mL 100 unit/mL 2-13 injection 00:00: solution 00 mupirocin 2 2016-04 No 1% % topical 2-12 ointment 00:00: 00 sulfamethox 2017- No 1mg azole 800 2-12 mg-trimetho 00:00: prim 160 mg 00 tablet ciprofloxac 2016-04 No 1mg in 500 mg 2-12 tablet 00:00: 00 sulfamethox 2016-04 No 1mg azole 800 2-12 mg-trimetho 00:00: prim 160 mg 00 tablet sulfamethox 2016-04 No 1mg azole 800 2-12 mg-trimetho 00:00: prim 160 mg 00 tablet mupirocin 2 2016-04 No 1% % topical 2-12 ointment 00:00: 00 sulfamethox 2016-04 No 1mg azole 800 2-12 mg-trimetho 00:00: prim 160 mg 00 tablet ciprofloxac 2016-04 No 1mg in 500 mg 2-12 tablet 00:00: 00 sulfamethox 2016-04 No 1mg azole 800 2-12 mg-trimetho 00:00: prim 160 mg 00 tablet sulfamethox 2016-04 No 1mg azole 800 2-12 mg-trimetho 00:00: prim 160 mg 00 tablet Levemir 100 2016-04 No unit/mL unit/mL 05-13 subcutaneou 00:00: s solution 00 Levemir 100 2016-04 No unit/mL unit/mL 05-13 subcutaneou 00:00: s solution 00 Novolin R 2016-04 No unit/mL 100 unit/mL 22 injection 00:00: solution 00 lisinopril 2016-04 No 1mg 5 mg tablet 05-13 00:00: 00 metformin 2016- No 1mg 1,000 mg -22 tablet 00:00: 00 Levemir 100 2016- No unit/mL unit/mL -22 subcutaneou 00:00: s solution 00 Levemir 100 2016- No unit/mL unit/mL -22 subcutaneou 00:00: s solution 00 Novolin R 2016-04 No unit/mL 100 unit/mL -22 injection 00:00: solution 00 lisinopril 2016-04 No 1mg 5 mg tablet 05-13 00:00: 00 metformin 2017- No 1mg 1,000 mg 1-22 tablet 00:00: 00 Levemir 100 2017-1 No unit/mL unit/mL 1-08 subcutaneou 00:00: s solution 00 Novolin R 2017-1 No unit/mL 100 unit/mL 1-08 injection 00:00: solution 00 Levemir 100 2016-1 No unit/mL unit/mL 1-08 subcutaneou 00:00: s solution 00 Novolin R 2016-1 No unit/mL 100 unit/mL 1-08 injection 00:00: solution 00 Levemir 100 2017-1 No 30unit/ unit/mL 0-30 mL subcutaneou 00:00: s solution 00 Levemir 100 2016-1 No unit/mL unit/mL 0-30 subcutaneou 00:00: s solution 00 Levemir 100 2016-1 No 30unit/ unit/mL 0-30 mL subcutaneou 00:00: s solution 00 Levemir 100 2016-1 No unit/mL unit/mL 0-30 subcutaneou 00:00: s solution 00 lisinopril 2016-1 No 1mg 5 mg tablet 0-25 00:00: 00 metformin 2017-1 No 1mg 1,000 mg 0-25 tablet 00:00: 00 lisinopril 2017-1 No 1mg 5 mg tablet 0-25 00:00: 00 metformin 2017-1 No 1mg 1,000 mg 0-25 tablet 00:00: 00 Levemir 100 2017-1 No 30unit/ unit/mL 0-24 mL subcutaneou 00:00: s solution 00 Levemir 100 2017-1 No 30unit/ unit/mL 0-24 mL subcutaneou 00:00: s solution 00 Levemir 100 2017-1 No 30unit/ unit/mL 0-24 mL subcutaneou 00:00: s solution 00 Levemir 100 2017-1 No 30unit/ unit/mL 0-24 mL subcutaneou 00:00: s solution 00 Levemir 100 2017-1 No 30unit/ unit/mL 0-04 mL subcutaneou 00:00: s solution 00 Levemir 100 2017-1 No 30unit/ unit/mL 0-04 mL subcutaneou 00:00: s solution 00 Novolin R 2017-1 No 15unit/ 100 unit/mL 0-04 mL injection 00:00: solution 00 Levemir 100 2017-1 No 30unit/ unit/mL 0-04 mL subcutaneou 00:00: s solution 00 Levemir 100 2017-1 No 30unit/ unit/mL 0-04 mL subcutaneou 00:00: s solution 00 Novolin R 2017-1 No 15unit/ 100 unit/mL 0-04 mL injection 00:00: solution 00 lovastatin 2017-0 No 2mg 20 mg 9-20 tablet 00:00: 00 lovastatin 2017-0 No 2mg 20 mg 9-20 tablet 00:00: 00 lovastatin 2017-0 No 2mg 20 mg 9-20 tablet 00:00: 00 lovastatin 2017-0 No 2mg 20 mg 9-20 tablet 00:00: 00 lovastatin 2017-0 No 2mg 20 mg 9-20 tablet 00:00: 00 lovastatin 2017-0 No 2mg 20 mg 9-20 tablet 00:00: 00 glyburide 5 2017-0 No 2mg mg tablet 8-05 00:00: 00 lisinopril 2017-0 No 1mg 5 mg tablet 8-05 00:00: 00 metformin 2017-0 No 1mg 1,000 mg 8-05 tablet 00:00: 00 gemfibrozil 2017-0 No 1mg 600 mg 8-05 tablet 00:00: 00 glyburide 5 2017-0 No 2mg mg tablet 8-05 00:00: 00 lisinopril 2017-0 No 1mg 5 mg tablet 8-05 00:00: 00 metformin 2017-0 No 1mg 1,000 mg 8-05 tablet 00:00: 00 gemfibrozil 2017-0 No 1mg 600 mg 8-05 tablet 00:00: 00 Lantus 100 2017-0 No 20unit/ unit/mL 8-03 mL subcutaneou 00:00: s solution 00 Lantus 100 2017-0 No 20unit/ unit/mL 8-03 mL subcutaneou 00:00: s solution 00 Lantus 100 2017-0 No 10unit/ unit/mL 4-21 mL subcutaneou 00:00: s solution 00 Novolin R 2017-0 No unit/mL 100 unit/mL 4-21 injection 00:00: solution 00 lisinopril 2017-0 No 1mg 2.5 mg 4-21 tablet 00:00: 00 glyburide 5 2017-0 No 2mg mg tablet 4-21 00:00: 00 metformin 2017-0 No 1mg 1,000 mg 4-21 tablet 00:00: 00 lovastatin 2017-0 No 1mg 20 mg 4-21 tablet 00:00: 00 lovastatin 2017-0 No 2mg 20 mg 4-21 tablet 00:00: 00 Lantus 100 2017-0 No 10unit/ unit/mL 4-21 mL subcutaneou 00:00: s solution 00 Novolin R 2017-0 No unit/mL 100 unit/mL 4-21 injection 00:00: solution 00 lisinopril 2017-0 No 1mg 2.5 mg 4-21 tablet 00:00: 00 glyburide 5 2017-0 No 2mg mg tablet 4-21 00:00: 00 metformin 2017-0 No 1mg 1,000 mg 4-21 tablet 00:00: 00 lovastatin 2017-0 No 1mg 20 mg 4-21 tablet 00:00: 00 lovastatin 2017-0 No 2mg 20 mg 4-21 tablet 00:00: 00 metformin 2017-0 No 1mg 1,000 mg 4-11 tablet 00:00: 00 glimepiride 2017-0 No 1mg 4 mg tablet 4-11 00:00: 00 metformin 2017-0 No 1mg 1,000 mg 4-11 tablet 00:00: 00 glimepiride 2017-0 No 1mg 4 mg tablet 4-11 00:00: 00 glimepiride 2017-0 No 1mg 4 mg tablet 3-31 00:00: 00 glimepiride 2017-0 No 1mg 4 mg tablet 3-31 00:00: 00 gemfibrozil 2017-0 No 1mg 600 mg 3-15 tablet 00:00: 00 gemfibrozil 2017-0 No 1mg 600 mg 3-15 tablet 00:00: 00 metformin 2017-0 No 1mg 1,000 mg 2-21 tablet 00:00: 00 metformin 2017-0 No 1mg 1,000 mg 2-21 tablet 00:00: 00 glyburide 5 2017-0 No 1mg mg tablet 2- 00:00: 00 glyburide 5 2017-0 No 1mg mg tablet 2-04 00:00: 00 gabapentin 2017-0 No 2mg 300 mg 1-25 capsule 00:00: 00 gabapentin 2017-0 No 2mg 300 mg 1-25 capsule 00:00: 00 Immunizations Ordered Immunization Filled Immunization Date Status Commen ts Source Name Name Salvador SORTO 2021-05-05 Completed Vaccine 00:00:00 Salvador COVID-Christine 2021-05-05 Completed Vaccine 00:00:00 Salvador COVID-19 2020-08-25 Completed Vaccine 00:00:00 Salvador COVID-19 2020-08-25 Completed Vaccine 00:00:00 Influenza, seasonal, 2018-03-27 Completed inj 00:00:00 Influenza, seasonal, 2018-03-27 Completed inj 00:00:00 Tdap 2017-04-03 Completed 00:00:00 Tdap 2017-04-03 Completed 00:00:00 Vital Signs Vital Name Observation Time Observation Value Comments Source BP Systolic 2022-05-01 08:18:00 148 mm[Hg] BP Diastolic 2022-05-01 08:18:00 82 mm[Hg] Weight Measured 2022-05-01 08:18:00 282.60 pounds Height Measured 2022-05-01 08:18:00 68.00 inches Body Temperature 2022-05-01 08:18:00 98.00 degrees Heart Rate 2022-05-01 08:18:00 76.00 /min Respiratory Rate 2022-05-01 08:18:00 BP Systolic 2022-02-23 15:19:00 121 mm[Hg] BP Diastolic 2022-02-23 15:19:00 81 mm[Hg] Weight Measured 2022-02-23 15:19:00 278.40 pounds Height Measured 2022-02-23 15:19:00 68.00 inches Body Temperature 2022-02-23 15:19:00 Heart Rate 2022-02-23 15:19:00 89.00 /min Respiratory Rate 2022-02-23 15:19:00 BP Systolic 2021-09-12 09:38:00 130 mm[Hg] BP Diastolic 2021-09-12 09:38:00 67 mm[Hg] Weight Measured 2021-09-12 09:38:00 266.00 pounds Height Measured 2021-09-12 09:38:00 68.00 inches Body Temperature 2021-09-12 09:38:00 98.00 degrees Heart Rate 2021-09-12 09:38:00 72.00 /min Respiratory Rate 2021-09-12 09:38:00 24.00 /min BP Systolic 2021-05-09 15:23:00 139 mm[Hg] BP Diastolic 2021-05-09 15:23:00 71 mm[Hg] Weight Measured 2021-05-09 15:23:00 272.80 pounds Height Measured 2021-05-09 15:23:00 68.00 inches Body Temperature 2021-05-09 15:23:00 98.60 degrees Heart Rate 2021-05-09 15:23:00 Respiratory Rate 2021-05-09 15:23:00 70.00 /min BP Systolic 2021-05-04 08:22:00 154 mm[Hg] BP Diastolic 2021-05-04 08:22:00 87 mm[Hg] Weight Measured 2021-05-04 08:22:00 272.60 pounds Height Measured 2021-05-04 08:22:00 68.00 inches Body Temperature 2021-05-04 08:22:00 98.30 degrees Heart Rate 2021-05-04 08:22:00 76.00 /min Respiratory Rate 2021-05-04 08:22:00 17.00 /min BP Systolic 2021-05-03 09:27:00 120 mm[Hg] BP Diastolic 2021-05-03 09:27:00 70 mm[Hg] Weight Measured 2021-05-03 09:27:00 274.80 pounds Height Measured 2021-05-03 09:27:00 68.00 inches Body Temperature 2021-05-03 09:27:00 97.80 degrees Heart Rate 2021-05-03 09:27:00 74.00 /min Respiratory Rate 2021-05-03 09:27:00 BP Systolic 2021-01-11 16:09:00 113 mm[Hg] BP Diastolic 2021-01-11 16:09:00 63 mm[Hg] Weight Measured 2021-01-11 16:09:00 268.80 pounds Height Measured 2021-01-11 16:09:00 68.00 inches Body Temperature 2021-01-11 16:09:00 98.20 degrees Heart Rate 2021-01-11 16:09:00 72.00 /min Respiratory Rate 2021-01-11 16:09:00 BP Systolic 2021-01-05 10:08:00 129 mm[Hg] BP Diastolic 2021-01-05 10:08:00 71 mm[Hg] Weight Measured 2021-01-05 10:08:00 265.40 pounds Height Measured 2021-01-05 10:08:00 68.00 inches Body Temperature 2021-01-05 10:08:00 97.50 degrees Heart Rate 2021-01-05 10:08:00 72.00 /min Respiratory Rate 2021-01-05 10:08:00 18.00 /min BP Systolic 2020-07-26 09:13:00 134 mm[Hg] BP Diastolic 2020-07-26 09:13:00 70 mm[Hg] Weight Measured 2020-07-26 09:13:00 273.80 pounds Height Measured 2020-07-26 09:13:00 68.00 inches Body Temperature 2020-07-26 09:13:00 98.30 degrees Heart Rate 2020-07-26 09:13:00 79.00 /min Respiratory Rate 2020-07-26 09:13:00 18.00 /min BP Systolic 2020-05-11 14:00:00 151 mm[Hg] BP Diastolic 2020-05-11 14:00:00 71 mm[Hg] Weight Measured 2020-05-11 14:00:00 272.60 pounds Height Measured 2020-05-11 14:00:00 68.00 inches Body Temperature 2020-05-11 14:00:00 98.90 degrees Heart Rate 2020-05-11 14:00:00 79.00 /min Respiratory Rate 2020-05-11 14:00:00 18.00 /min BP Systolic 2020-05-04 14:16:00 152 mm[Hg] BP Diastolic 2020-05-04 14:16:00 81 mm[Hg] Weight Measured 2020-05-04 14:16:00 272.80 pounds Height Measured 2020-05-04 14:16:00 68.00 inches Body Temperature 2020-05-04 14:16:00 98.60 degrees Heart Rate 2020-05-04 14:16:00 82.00 /min Respiratory Rate 2020-05-04 14:16:00 17.00 /min Procedures This patient has no known procedures. Plan of Care Planned Activity Planned Date Details Comments Source Goal Plan of Care Note [code = 98680-0] Goal Plan of Care Note [code = 23220-4] Goal Plan of Care Note [code = 15135-0] Goal Plan of Care Note [code = 22675-3] Goal Plan of Care Note [code = 80172-3] Goal Plan of Care Note [code = 70676-4] Goal Plan of Care Note [code = 89726-8] Goal Plan of Care Note [code = 84855-1] Goal Plan of Care Note [code = 02792-6] Goal Plan of Care Note [code = 50571-8] Goal Plan of Care Note [code = 62463-0] Goal Plan of Care Note [code = 53571-6] Goal Plan of Care Note [code = 59736-4] Goal Plan of Care Note [code = 68424-0] Goal Plan of Care Note [code = 03790-6] Goal Plan of Care Note [code = 37312-3] Goal Plan of Care Note [code = 23344-6] Goal Plan of Care Note [code = 83288-8] Goal Plan of Care Note [code = 98271-2] Goal Plan of Care Note [code = 57694-1] Goal Plan of Care Note [code = 93331-2] Goal Plan of Care Note [code = 86509-8] Goal Plan of Care Note [code = 94270-8] Goal Plan of Care Note [code = 43490-8] Goal Plan of Care Note [code = 25761-0] Goal Plan of Care Note [code = 67228-1] Goal Plan of Care Note [code = 14926-6] Goal Plan of Care Note [code = 65372-8] Goal Plan of Care Note [code = 76883-5] Goal Plan of Care Note [code = 61142-0] Goal Plan of Care Note [code = 87113-9] Goal Plan of Care Note [code = 87924-3] Goal Plan of Care Note [code = 47642-7] Goal Plan of Care Note [code = 18172-9] Goal Plan of Care Note [code = 97921-4] Goal Plan of Care Note [code = 08974-9] Goal Plan of Care Note [code = 51977-4] Goal Plan of Care Note [code = 83739-2] Goal Plan of Care Note [code = 83372-0] Goal Plan of Care Note [code = 12563-7] Goal Plan of Care Note [code = 79162-1] Goal Plan of Care Note [code = 53828-5] Goal Plan of Care Note [code = 44572-4] Goal Plan of Care Note [code = 28971-0] Goal Plan of Care Note [code = 12275-9] Goal Plan of Care Note [code = 75401-6] Goal Plan of Care Note [code = 81629-3] Goal Plan of Care Note [code = 01835-1] Goal Plan of Care Note [code = 62437-1] Goal Plan of Care Note [code = 57798-9] Goal Plan of Care Note [code = 22739-1] Goal Plan of Care Note [code = 02987-8] Goal Plan of Care Note [code = 41834-9] Goal Plan of Care Note [code = 01474-4] Goal Plan of Care Note [code = 26035-1] Goal Plan of Care Note [code = 56706-4] Encounters Start End Encounter Admission Attending Care Care Encounter Source Date/Time Date/Time Type Type Clinicians Facility Department ID 2022-11-19 2022-11-19 Outpatient [facility] [id number] [place] 11:19:53 11:19:53 0731 F Richy 2022-11-12 2022-11-12 Outpatient SFA SFA [id number] [place] 10:49:34 10:49:34 0724 F Richy 2022-09-11 2022-09-11 Outpatient SFA SFA [id number] [place] 13:23:18 13:23:18 0523 F Richy 2022-09-11 2022-09-11 Outpatient SFA SFA [id number] [place] 13:05:04 13:05:04 [id number] F Richy 2022-05-02 2022-05-02 Outpatient SFA SFA [id number] [place] 08:12:58 08:12:58 [id number] F Richy 2022-05-01 2022-05-01 Outpatient [facility] [id number] [place] 08:13:01 08:13:01 0110 F Richy 2022-05-01 2022-05-01 Outpatient [id number] 00:00:00 00:00:00 Visit [id number] 2022-02-23 2022-02-23 Outpatient [facility] [id number] 022 [place] 15:14:46 15:14:46 1104 F Richy 2022-02-23 2022-02-23 Outpatient [id number] 00:00:00 00:00:00 Visit [id number] Results Test Description Test Time Test Comments Results Result Comments Source OCCULT BLD,FECAL,IMMUNOASSAY DIAG 2022-05-24 15:52:04 Test Item Value Reference Range Interpretation Comme nts OCCULT BLD, FECAL (test code = 09980) NEGATIVE NEGATIVE UNLABELLED [id number] 06:05:05 Test Item Value Reference Range Interpretation Comments NOTE: (test code = SPECIMEN RECEIVED WITHOUT 56752) PATIENT'S NAME. [facility] has important p athology staff changes e ffective 06/20/2022. New pathology staff will provide uninter rupted, excellent patie nt care and clinical consul tation. See URL: [email or web address]. UNLESS OT HERWISE INDICATED, ALL TESTING PERFORMED AT [facility] [address], [place] CLIA: [id number], CAP: [id number] COMPREHENSIVE METABOLIC [id number] 00:00:00 Test Item Value Reference Range Interpretation Comments GLUCOSE (test code = 2217) 196 MG/DL BUN (test code = 2208) 26 MG/DL CREATININE (test code = 2214) 0.71 MG/DL eGFR (2020 CKD-EPI) (test 105 ML/MIN/1.73 code = 57263) CALC BUN/CREAT (test code = 37 RATIO 2235) SODIUM (test code = 2231) 136 MEQ/L POTASSIUM (test code = 2228) 5.0 MEQ/L CHLORIDE (test code = 2215) 98 MEQ/L CARBON DIOXIDE (test code = 21 MEQ/L 2206) CALCIUM (test code = 2209) 9.3 MG/DL PROTEIN, TOTAL (test code = 7.0 G/DL 222) ALBUMIN (test code = 2201) 4.0 G/DL CALC GLOBULIN (test code = 3.0 G/DL 2240) CALC A/G RATIO (test code = 1.3 RATIO 2234) BILIRUBIN, TOTAL (test code = <0.2 MG/DL 2206) ALKALINE PHOSPHATASE (test 104 U/L code = 2204) AST (test code = 2218) 20 U/L ALT (test code = 2219) 24 U/L COMPREHENSIVE METABOLIC [id number] 00:00:00 Test Item Value Reference Range Interpretation Comments GLUCOSE (test code = 2217) 196 MG/DL BUN (test code = 2208) 26 MG/DL CREATININE (test code = 2214) 0.71 MG/DL eGFR (2020 CKD-EPI) (test 105 ML/MIN/1.73 code = 34355) CALC BUN/CREAT (test code = 37 RATIO 2235) SODIUM (test code = 2231) 136 MEQ/L POTASSIUM (test code = 2228) 5.0 MEQ/L CHLORIDE (test code = 2215) 98 MEQ/L CARBON DIOXIDE (test code = 21 MEQ/L 2206) CALCIUM (test code = 2209) 9.3 MG/DL PROTEIN, TOTAL (test code = 7.0 G/DL 9) ALBUMIN (test code = 2201) 4.0 G/DL CALC GLOBULIN (test code = 3.0 G/DL 2240) CALC A/G RATIO (test code = 1.3 RATIO 2234) BILIRUBIN, TOTAL (test code = <0.2 MG/DL 2206) ALKALINE PHOSPHATASE (test 104 U/L code = 2204) AST (test code = 2218) 20 U/L ALT (test code = 2219) 24 U/L LIPID [id number] 00:00:00 Test Item Value Reference Range Interpretation Comments CHOLESTEROL (test code = 2210) 235 MG/DL TRIGLYCERIDES (test code = 2232) 369 MG/DL HDL CHOLESTEROL (test code = 2220) 46 MG/DL CALC LDL CHOL (test code = 2237) 136 MG/DL RISK RATIO LDL/HDL (test code = 2.96 RATIO 2238) LIPID [id number] 00:00:00 Test Item Value Reference Range Interpretation Comments CHOLESTEROL (test code = 2210) 235 MG/DL TRIGLYCERIDES (test code = 2232) 369 MG/DL HDL CHOLESTEROL (test code = 2220) 46 MG/DL CALC LDL CHOL (test code = 2237) 136 MG/DL RISK RATIO LDL/HDL (test code = 2.96 RATIO 2238) HEMOGLOBIN [id number] 00:00:00 Test Item Value Reference Range Interpretation Comments HEMOGLOBIN A1c (test code = 34983) 10.3 % HEMOGLOBIN [id number] 00:00:00 Test Item Value Reference Range Interpretation Comments HEMOGLOBIN A1c (test code = 24250) 10.3 % HEMOGLOBIN [id number] 00:00:00 Test Item Value Reference Range Interpretation Comments HEMOGLOBIN A1c (test code = 33989) 10.3 % COMPREHENSIVE METABOLIC [id number] 00:00:00 Test Item Value Reference Range Interpretation Comments GLUCOSE (test code = 2217) 196 MG/DL BUN (test code = 2208) 26 MG/DL CREATININE (test code = 2214) 0.71 MG/DL eGFR (2020 CKD-EPI) (test 105 ML/MIN/1.73 code = 92338) CALC BUN/CREAT (test code = 37 RATIO 5) SODIUM (test code = 2231) 136 MEQ/L POTASSIUM (test code = 2228) 5.0 MEQ/L CHLORIDE (test code = 2215) 98 MEQ/L CARBON DIOXIDE (test code = 21 MEQ/L 2205) CALCIUM (test code = 2209) 9.3 MG/DL PROTEIN, TOTAL (test code = 7.0 G/DL 2228) ALBUMIN (test code = 2201) 4.0 G/DL CALC GLOBULIN (test code = 3.0 G/DL 2239) CALC A/G RATIO (test code = 1.3 RATIO 4) BILIRUBIN, TOTAL (test code = <0.2 MG/DL 2206) ALKALINE PHOSPHATASE (test 104 U/L code = 2204) AST (test code = 2218) 20 U/L ALT (test code = 2219) 24 U/L COMPREHENSIVE METABOLIC [id number] 00:00:00 Test Item Value Reference Range Interpretation Comments GLUCOSE (test code = 2217) 196 MG/DL BUN (test code = 2208) 26 MG/DL CREATININE (test code = 2214) 0.71 MG/DL eGFR (2020 CKD-EPI) (test 105 ML/MIN/1.73 code = 04596) CALC BUN/CREAT (test code = 37 RATIO 2235) SODIUM (test code = 2231) 136 MEQ/L POTASSIUM (test code = 2228) 5.0 MEQ/L CHLORIDE (test code = 2215) 98 MEQ/L CARBON DIOXIDE (test code = 21 MEQ/L 2205) CALCIUM (test code = 2209) 9.3 MG/DL PROTEIN, TOTAL (test code = 7.0 G/DL 2228) ALBUMIN (test code = 2201) 4.0 G/DL CALC GLOBULIN (test code = 3.0 G/DL 2239) CALC A/G RATIO (test code = 1.3 RATIO 4) BILIRUBIN, TOTAL (test code = <0.2 MG/DL 2206) ALKALINE PHOSPHATASE (test 104 U/L code = 2204) AST (test code = 2218) 20 U/L ALT (test code = 2219) 24 U/L LIPID [id number] 00:00:00 Test Item Value Reference Range Interpretation Comments CHOLESTEROL (test code = 2210) 235 MG/DL TRIGLYCERIDES (test code = 2232) 369 MG/DL HDL CHOLESTEROL (test code = 2220) 46 MG/DL CALC LDL CHOL (test code = 2237) 136 MG/DL RISK RATIO LDL/HDL (test code = 2.96 RATIO 2238) LIPID [id number] 00:00:00 Test Item Value Reference Range Interpretation Comments CHOLESTEROL (test code = 2210) 235 MG/DL TRIGLYCERIDES (test code = 2232) 369 MG/DL HDL CHOLESTEROL (test code = 2220) 46 MG/DL CALC LDL CHOL (test code = 2237) 136 MG/DL RISK RATIO LDL/HDL (test code = 2.96 RATIO 2238) HEMOGLOBIN [id number] 00:00:00 Test Item Value Reference Range Interpretation Comments HEMOGLOBIN A1c (test code = 66491) 10.3 % HEMOGLOBIN [id number] 00:00:00 Test Item Value Reference Range Interpretation Comments HEMOGLOBIN A1c (test code = 92734) 10.3 % HEMOGLOBIN [id number] 00:00:00 Test Item Value Reference Range Interpretation Comments HEMOGLOBIN A1c (test code = 41802) 10.3 % HEMOGLOBIN [id number] 07:10:33 Test Item Value Reference Range Interpretation Comments HEMOGLOBIN A1c (test 10.3 % 4.2-5.6 H [employer] AN DIABETES code = 20588) ASSOCIATION IDELINES FOR HGB A1C: PREDIABETES/INC REASED RISK . . . . . . . 5 .7-6.4% DIAGNOSIS OF DI ABETES . . . . . . . . . >=6 .5% WITH CONFIRMATION OR APPROPRIATE SYMPTOMS NOTE: ASSAY MAY BE AFFECTED BY HEMOGLOBINOPATH IES (SICKLE CELL ANEMIA, S- C DISEASE, OTHERS) OR SAGAR FICIALLY LOWERED BY DECR EASED RED CELL SURVIVAL ( HEMOLYTIC ANEMIAS, BLOOD LOSS, ETC.). CONSIDER ALTERN ATE TESTING OR LABORATORY C ONSULTATION. LIPID [id number] 05:55:37 Test Item Value Reference Range Interpretation Comments CHOLESTEROL (test 150 MG/DL <200 code = 2210) TRIGLYCERIDES (test 281 MG/DL <150 H code = 2232) HDL CHOLESTEROL (test 47 MG/DL >39 code = 2220) CALC LDL CHOL (test 66 MG/DL <100 NOTE: C ALCULATED LDL code = 2237) IS BASED ON NATASHA-JADE METHOD WHICHINCLUDES ADJUSTABLE TRIGLYCERIDE:VL DL CHOLESTEROL RAT IO.THIS FACTOR VARIES B Y MEASURED TRIGLY CERIDE AND NON-HDLCHOL ESTEROL CONCENTRATIONS WITH INCREASED CALCU LATED LDL SEENIN HIGH ER TRIGLYCERIDE OR LOWER NON-HDL SPECIME NS. FOR MOREINFORMATION , SEE CLIENT ANNOUNCE MENT AT [email or web address] RISK RATIO LDL/HDL 1.40 RATIO <3.55 (test code = 2238) COMPREHENSIVE METABOLIC [id number] 05:55:37 Test Item Value Reference Range Interpretation Comments GLUCOSE (test code = 233 MG/DL 70-99 H 2216) BUN (test code = 20 MG/DL 6-20 2207) CREATININE (test 0.68 MG/DL 0.80-1.40 L code = 2214) eGFR (2021 CKD-EPI) 107 >60 (test code = 26309) ML/MIN/1.73 CALC BUN/CREAT (test 29 RATIO 6-28 H code = 223) SODIUM (test code = 137 MEQ/L 163-201 9878) POTASSIUM (test code 5.1 MEQ/L 3.5-5.4 = 2227) CHLORIDE (test code 97 MEQ/L 95-107 = 221) CARBON DIOXIDE (test 27 MEQ/L 19-31 code = 220) CALCIUM (test code = 10.2 MG/DL 8.5-10.5 2208) PROTEIN, TOTAL (test 7.0 G/DL 6.1-8.3 code = 2228) ALBUMIN (test code = 4.0 G/DL 3.5-5.2 2200) CALC GLOBULIN (test 3.0 G/DL 1.9-3.7 code = 224) CALC A/G RATIO (test 1.3 RATIO 1.0-2.6 code = 223) BILIRUBIN, TOTAL <0.2 MG/DL See_Comment [Automated message] (test code = 2206) The [employer] which generated this result transmitted ref erence range: <=1.2. T he reference range was not used to int erpret this result as normal/abnormal . ALKALINE PHOSPHATASE 105 U/L 40-123 (test code = 2203) AST (test code = 11 U/L 9-50 2217) ALT (test code = 21 U/L 5-50 UNLESS OTH ERWISE 2218) INDICATED, ALL TESTING PERFORM [facility], [facility]. [address] [place] [id number] [place] [address] DIRECTOR: Mireille HOWE NUMBER [id number] CAP ACCREDITATION N O. [id number] HEMOGLOBIN [id number] 00:00:00 Test Item Value Reference Range Interpretation Comments HEMOGLOBIN A1c (test code = 82407) 10.3 % HEMOGLOBIN [id number] 00:00:00 Test Item Value Reference Range Interpretation Comments HEMOGLOBIN A1c (test code = 07342) 10.3 % HEMOGLOBIN [id number] 00:00:00 Test Item Value Reference Range Interpretation Comments HEMOGLOBIN A1c (test code = 19349) 10.3 % LIPID [id number] 00:00:00 Test Item Value Reference Range Interpretation Comments CHOLESTEROL (test code = 2210) 150 MG/DL TRIGLYCERIDES (test code = 2232) 281 MG/DL HDL CHOLESTEROL (test code = 2220) 47 MG/DL CALC LDL CHOL (test code = 2237) 66 MG/DL RISK RATIO LDL/HDL (test code = 1.40 RATIO 2238) LIPID [id number] 00:00:00 Test Item Value Reference Range Interpretation Comments CHOLESTEROL (test code = 2210) 150 MG/DL TRIGLYCERIDES (test code = 2232) 281 MG/DL HDL CHOLESTEROL (test code = 2220) 47 MG/DL CALC LDL CHOL (test code = 2237) 66 MG/DL RISK RATIO LDL/HDL (test code = 1.40 RATIO 2238) COMPREHENSIVE METABOLIC [id number] 00:00:00 Test Item Value Reference Range Interpretation Comments GLUCOSE (test code = 2217) 233 MG/DL BUN (test code = 2208) 20 MG/DL CREATININE (test code = 2214) 0.68 MG/DL eGFR (2020 CKD-EPI) (test 107 ML/MIN/1.73 code = 26274) CALC BUN/CREAT (test code = 29 RATIO 2235) SODIUM (test code = 2231) 137 MEQ/L POTASSIUM (test code = 2228) 5.1 MEQ/L CHLORIDE (test code = 2215) 97 MEQ/L CARBON DIOXIDE (test code = 27 MEQ/L 2205) CALCIUM (test code = 2209) 10.2 MG/DL PROTEIN, TOTAL (test code = 7.0 G/DL 2228) ALBUMIN (test code = 2201) 4.0 G/DL CALC GLOBULIN (test code = 3.0 G/DL 2240) CALC A/G RATIO (test code = 1.3 RATIO 2234) BILIRUBIN, TOTAL (test code = <0.2 MG/DL 2206) ALKALINE PHOSPHATASE (test 105 U/L code = 2204) AST (test code = 2218) 11 U/L ALT (test code = 2219) 21 U/L COMPREHENSIVE METABOLIC [id number] 00:00:00 Test Item Value Reference Range Interpretation Comments GLUCOSE (test code = 2217) 233 MG/DL BUN (test code = 2208) 20 MG/DL CREATININE (test code = 2214) 0.68 MG/DL eGFR (2020 CKD-EPI) (test 107 ML/MIN/1.73 code = 68741) CALC BUN/CREAT (test code = 29 RATIO 2235) SODIUM (test code = 2231) 137 MEQ/L POTASSIUM (test code = 2228) 5.1 MEQ/L CHLORIDE (test code = 2215) 97 MEQ/L CARBON DIOXIDE (test code = 27 MEQ/L 2205) CALCIUM (test code = 2209) 10.2 MG/DL PROTEIN, TOTAL (test code = 7.0 G/DL 2228) ALBUMIN (test code = 220) 4.0 G/DL CALC GLOBULIN (test code = 3.0 G/DL 2239) CALC A/G RATIO (test code = 1.3 RATIO 2233) BILIRUBIN, TOTAL (test code = <0.2 MG/DL 2206) ALKALINE PHOSPHATASE (test 105 U/L code = 2204) AST (test code = 2218) 11 U/L ALT (test code = 2219) 21 U/L HEMOGLOBIN [id number] 00:00:00 Test Item Value Reference Range Interpretation Comments HEMOGLOBIN A1c (test code = 25463) 10.3 % HEMOGLOBIN [id number] 00:00:00 Test Item Value Reference Range Interpretation Comments HEMOGLOBIN A1c (test code = 20927) 10.3 % HEMOGLOBIN [id number] 00:00:00 Test Item Value Reference Range Interpretation Comments HEMOGLOBIN A1c (test code = 43147) 10.3 % LIPID [id number] 00:00:00 Test Item Value Reference Range Interpretation Comments CHOLESTEROL (test code = 2210) 150 MG/DL TRIGLYCERIDES (test code = 2232) 281 MG/DL HDL CHOLESTEROL (test code = 2220) 47 MG/DL CALC LDL CHOL (test code = 2237) 66 MG/DL RISK RATIO LDL/HDL (test code = 1.40 RATIO 2238) LIPID [id number] 00:00:00 Test Item Value Reference Range Interpretation Comments CHOLESTEROL (test code = 2210) 150 MG/DL TRIGLYCERIDES (test code = 2232) 281 MG/DL HDL CHOLESTEROL (test code = 2220) 47 MG/DL CALC LDL CHOL (test code = 2237) 66 MG/DL RISK RATIO LDL/HDL (test code = 1.40 RATIO 2238) COMPREHENSIVE METABOLIC [id number] 00:00:00 Test Item Value Reference Range Interpretation Comments GLUCOSE (test code = 2217) 233 MG/DL BUN (test code = 2208) 20 MG/DL CREATININE (test code = 2214) 0.68 MG/DL eGFR (2020 CKD-EPI) (test 107 ML/MIN/1.73 code = 77141) CALC BUN/CREAT (test code = 29 RATIO 2235) SODIUM (test code = 2231) 137 MEQ/L POTASSIUM (test code = 2228) 5.1 MEQ/L CHLORIDE (test code = 2215) 97 MEQ/L CARBON DIOXIDE (test code = 27 MEQ/L 2206) CALCIUM (test code = 2209) 10.2 MG/DL PROTEIN, TOTAL (test code = 7.0 G/DL 2228) ALBUMIN (test code = 2201) 4.0 G/DL CALC GLOBULIN (test code = 3.0 G/DL 2240) CALC A/G RATIO (test code = 1.3 RATIO 2234) BILIRUBIN, TOTAL (test code = <0.2 MG/DL 2206) ALKALINE PHOSPHATASE (test 105 U/L code = 2204) AST (test code = 2218) 11 U/L ALT (test code = 2219) 21 U/L COMPREHENSIVE METABOLIC [id number] 00:00:00 Test Item Value Reference Range Interpretation Comments GLUCOSE (test code = 2217) 233 MG/DL BUN (test code = 2208) 20 MG/DL CREATININE (test code = 2214) 0.68 MG/DL eGFR (2020 CKD-EPI) (test 107 ML/MIN/1.73 code = 73295) CALC BUN/CREAT (test code = 29 RATIO 2235) SODIUM (test code = 2231) 137 MEQ/L POTASSIUM (test code = 2228) 5.1 MEQ/L CHLORIDE (test code = 2215) 97 MEQ/L CARBON DIOXIDE (test code = 27 MEQ/L 2206) CALCIUM (test code = 2209) 10.2 MG/DL PROTEIN, TOTAL (test code = 7.0 G/DL 2228) ALBUMIN (test code = 2201) 4.0 G/DL CALC GLOBULIN (test code = 3.0 G/DL 2240) CALC A/G RATIO (test code = 1.3 RATIO 2234) BILIRUBIN, TOTAL (test code = <0.2 MG/DL 2207) ALKALINE PHOSPHATASE (test 105 U/L code = 2204) AST (test code = 2218) 11 U/L ALT (test code = 2219) 21 U/L HEMOGLOBIN [id number] 00:00:00 Test Item Value Reference Range Interpretation Comments HEMOGLOBIN A1c (test code = 54395) 11.0 % COMPREHENSIVE METABOLIC [id number] 00:00:00 Test Item Value Reference Range Interpretation Comments GLUCOSE (test code = 2217) 108 MG/DL BUN (test code = 2208) 18 MG/DL CREATININE (test code = 2214) 0.56 MG/DL eGFR (2020 CKD-EPI) (test 114 ML/MIN/1.73 code = 31782) CALC BUN/CREAT (test code = 32 RATIO 2235) SODIUM (test code = 2231) 140 MEQ/L POTASSIUM (test code = 2228) 4.3 MEQ/L CHLORIDE (test code = 2215) 102 MEQ/L CARBON DIOXIDE (test code = 24 MEQ/L 220) CALCIUM (test code = 2209) 9.9 MG/DL PROTEIN, TOTAL (test code = 6.7 G/DL 2228) ALBUMIN (test code = 2201) 4.1 G/DL CALC GLOBULIN (test code = 2.6 G/DL 2239) CALC A/G RATIO (test code = 1.6 RATIO 2233) BILIRUBIN, TOTAL (test code = <0.2 MG/DL 2206) ALKALINE PHOSPHATASE (test 97 U/L code = 2204) AST (test code = 2218) 16 U/L ALT (test code = 2219) 21 U/L COMPREHENSIVE METABOLIC [id number] 00:00:00 Test Item Value Reference Range Interpretation Comments GLUCOSE (test code = 2217) 108 MG/DL BUN (test code = 2208) 18 MG/DL CREATININE (test code = 2214) 0.56 MG/DL eGFR (2020 CKD-EPI) (test 114 ML/MIN/1.73 code = 74752) CALC BUN/CREAT (test code = 32 RATIO 2235) SODIUM (test code = 2231) 140 MEQ/L POTASSIUM (test code = 2228) 4.3 MEQ/L CHLORIDE (test code = 2215) 102 MEQ/L CARBON DIOXIDE (test code = 24 MEQ/L 2206) CALCIUM (test code = 2209) 9.9 MG/DL PROTEIN, TOTAL (test code = 6.7 G/DL 2228) ALBUMIN (test code = 2201) 4.1 G/DL CALC GLOBULIN (test code = 2.6 G/DL 2240) CALC A/G RATIO (test code = 1.6 RATIO 2234) BILIRUBIN, TOTAL (test code = <0.2 MG/DL 2206) ALKALINE PHOSPHATASE (test 97 U/L code = 2204) AST (test code = 2218) 16 U/L ALT (test code = 2219) 21 U/L LIPID [id number] 00:00:00 Test Item Value Reference Range Interpretation Comments CHOLESTEROL (test code = 2210) 187 MG/DL TRIGLYCERIDES (test code = 2232) 229 MG/DL HDL CHOLESTEROL (test code = 2220) 46 MG/DL CALC LDL CHOL (test code = 2237) 106 MG/DL RISK RATIO LDL/HDL (test code = 2.30 RATIO 2238) LIPID [id number] 00:00:00 Test Item Value Reference Range Interpretation Comments CHOLESTEROL (test code = 2210) 187 MG/DL TRIGLYCERIDES (test code = 2232) 229 MG/DL HDL CHOLESTEROL (test code = 2220) 46 MG/DL CALC LDL CHOL (test code = 2237) 106 MG/DL RISK RATIO LDL/HDL (test code = 2.30 RATIO 2238) HEMOGLOBIN [id number] 00:00:00 Test Item Value Reference Range Interpretation Comments HEMOGLOBIN A1c (test code = 97187) 11.0 % HEMOGLOBIN [id number] 00:00:00 Test Item Value Reference Range Interpretation Comments HEMOGLOBIN A1c (test code = 55667) 11.0 % HEMOGLOBIN [id number] 00:00:00 Test Item Value Reference Range Interpretation Comments HEMOGLOBIN A1c (test code = 71786) 11.0 % COMPREHENSIVE METABOLIC [id number] 00:00:00 Test Item Value Reference Range Interpretation Comments GLUCOSE (test code = 2217) 108 MG/DL BUN (test code = 2208) 18 MG/DL CREATININE (test code = 2214) 0.56 MG/DL eGFR (2020 CKD-EPI) (test 114 ML/MIN/1.73 code = 97664) CALC BUN/CREAT (test code = 32 RATIO 2235) SODIUM (test code = 2231) 140 MEQ/L POTASSIUM (test code = 2228) 4.3 MEQ/L CHLORIDE (test code = 2215) 102 MEQ/L CARBON DIOXIDE (test code = 24 MEQ/L 220) CALCIUM (test code = 2209) 9.9 MG/DL PROTEIN, TOTAL (test code = 6.7 G/DL 2228) ALBUMIN (test code = 2201) 4.1 G/DL CALC GLOBULIN (test code = 2.6 G/DL 2240) CALC A/G RATIO (test code = 1.6 RATIO 2234) BILIRUBIN, TOTAL (test code = <0.2 MG/DL 2206) ALKALINE PHOSPHATASE (test 97 U/L code = 2204) AST (test code = 2218) 16 U/L ALT (test code = 2219) 21 U/L COMPREHENSIVE METABOLIC [id number] 00:00:00 Test Item Value Reference Range Interpretation Comments GLUCOSE (test code = 2217) 108 MG/DL BUN (test code = 2208) 18 MG/DL CREATININE (test code = 2214) 0.56 MG/DL eGFR (2020 CKD-EPI) (test 114 ML/MIN/1.73 code = 81524) CALC BUN/CREAT (test code = 32 RATIO 2235) SODIUM (test code = 2231) 140 MEQ/L POTASSIUM (test code = 2228) 4.3 MEQ/L CHLORIDE (test code = 2215) 102 MEQ/L CARBON DIOXIDE (test code = 24 MEQ/L 2205) CALCIUM (test code = 2209) 9.9 MG/DL PROTEIN, TOTAL (test code = 6.7 G/DL 2228) ALBUMIN (test code = 2201) 4.1 G/DL CALC GLOBULIN (test code = 2.6 G/DL 2240) CALC A/G RATIO (test code = 1.6 RATIO 2234) BILIRUBIN, TOTAL (test code = <0.2 MG/DL 2206) ALKALINE PHOSPHATASE (test 97 U/L code = 2204) AST (test code = 2218) 16 U/L ALT (test code = 2219) 21 U/L LIPID [id number] 00:00:00 Test Item Value Reference Range Interpretation Comments CHOLESTEROL (test code = 2210) 187 MG/DL TRIGLYCERIDES (test code = 2232) 229 MG/DL HDL CHOLESTEROL (test code = 2220) 46 MG/DL CALC LDL CHOL (test code = 2237) 106 MG/DL RISK RATIO LDL/HDL (test code = 2.30 RATIO 2238) LIPID [id number] 00:00:00 Test Item Value Reference Range Interpretation Comments CHOLESTEROL (test code = 2210) 187 MG/DL TRIGLYCERIDES (test code = 2232) 229 MG/DL HDL CHOLESTEROL (test code = 2220) 46 MG/DL CALC LDL CHOL (test code = 2237) 106 MG/DL RISK RATIO LDL/HDL (test code = 2.30 RATIO 2238) HEMOGLOBIN [id number] 00:00:00 Test Item Value Reference Range Interpretation Comments HEMOGLOBIN A1c (test code = 22031) 11.0 % HEMOGLOBIN [id number] 00:00:00 Test Item Value Reference Range Interpretation Comments HEMOGLOBIN A1c (test code = 80046) 11.0 % HEMOGLOBIN [id number] 00:00:00 Test Item Value Reference Range Interpretation Comments HEMOGLOBIN A1c (test code = 09203) 10.5 % HEMOGLOBIN [id number] 00:00:00 Test Item Value Reference Range Interpretation Comments HEMOGLOBIN A1c (test code = 45410) 10.5 % HEMOGLOBIN [id number] 00:00:00 Test Item Value Reference Range Interpretation Comments HEMOGLOBIN A1c (test code = 47910) 10.5 % LIPID [id number] 00:00:00 Test Item Value Reference Range Interpretation Comments CHOLESTEROL (test code = 2210) 264 MG/DL TRIGLYCERIDES (test code = 2232) 274 MG/DL HDL CHOLESTEROL (test code = 2220) 48 MG/DL CALC LDL CHOL (test code = 2237) 171 MG/DL RISK RATIO LDL/HDL (test code = 3.56 RATIO 2238) LIPID [id number] 00:00:00 Test Item Value Reference Range Interpretation Comments CHOLESTEROL (test code = 2210) 264 MG/DL TRIGLYCERIDES (test code = 2232) 274 MG/DL HDL CHOLESTEROL (test code = 2220) 48 MG/DL CALC LDL CHOL (test code = 2237) 171 MG/DL RISK RATIO LDL/HDL (test code = 3.56 RATIO 2238) MICROALBUMIN/CREATININE, RANDOM AND [id number] 00:00:00 Test Item Value Reference Range Interpretation Comments CREATININE, URINE, CONC. (test 199.4 MG/DL code = 2072) ALBUMIN, URINE, RANDOM (test code 21.4 MG/DL = 86937) CALC ALBUMIN/CREAT, RND (test 107 MG/G code = 62913) MICROALBUMIN/CREATININE, RANDOM AND [id number] 00:00:00 Test Item Value Reference Range Interpretation Comments CREATININE, URINE, CONC. (test 199.4 MG/DL code = 2072) ALBUMIN, URINE, RANDOM (test code 21.4 MG/DL = 28437) CALC ALBUMIN/CREAT, RND (test 107 MG/G code = 51817) URINALYSIS WITH MICROSCOPIC [ADDED]2021-01-06 00:00:00 Test Item Value Reference Range Interpretation Comments COLOR (test code = 1501) DARK YELLOW APPEARANCE (test code = 1502) TURBID SPECIFIC GRAVITY (test code = 1.024 1503) LEUKOCYTE ESTERASE (test code = NEGATIVE 1504) NITRITE (test code = 1505) NEGATIVE pH (test code = 1506) 5.5 PROTEIN (test code = 1507) 1+ GLUCOSE (test code = 1508) NEGATIVE KETONES (test code = 1509) TRACE UROBILINOGEN (test code = 1510) 0.2 MG/DL BILIRUBIN (test code = 1511) NEGATIVE OCCULT BLOOD (test code = 1512) NEGATIVE WHITE BLOOD CELLS (test code = 0-5 /HPF 1513) RED BLOOD CELLS (test code = 0-2 /HPF 1514) EPITHELIAL CELLS (test code = 0-5 /HPF 76989) BACTERIA (test code = 1515) NONE SEEN CASTS, HYALINE (test code = 1517) TRACE URINALYSIS WITH MICROSCOPIC [ADDED]2021-01-06 00:00:00 Test Item Value Reference Range Interpretation Comments COLOR (test code = 1501) DARK YELLOW APPEARANCE (test code = 1502) TURBID SPECIFIC GRAVITY (test code = 1.024 1503) LEUKOCYTE ESTERASE (test code = NEGATIVE 1504) NITRITE (test code = 1505) NEGATIVE pH (test code = 1506) 5.5 PROTEIN (test code = 1507) 1+ GLUCOSE (test code = 1508) NEGATIVE KETONES (test code = 1509) TRACE UROBILINOGEN (test code = 1510) 0.2 MG/DL BILIRUBIN (test code = 1511) NEGATIVE OCCULT BLOOD (test code = 1512) NEGATIVE WHITE BLOOD CELLS (test code = 0-5 /HPF 1513) RED BLOOD CELLS (test code = 0-2 /HPF 1514) EPITHELIAL CELLS (test code = 0-5 /HPF 27624) BACTERIA (test code = 1515) NONE SEEN CASTS, HYALINE (test code = 1517) TRACE NT-proBNP [ADDED]2021-01-06 00:00:00 Test Item Value Reference Range Interpretation Comments NT-proBNP (test code = 20407) 75 PG/ML NT-proBNP [ADDED]2021-01-06 00:00:00 Test Item Value Reference Range Interpretation Comments NT-proBNP (test code = 37975) 75 PG/ML NT-proBNP [ADDED]2021-01-06 00:00:00 Test Item Value Reference Range Interpretation Comments NT-proBNP (test code = 55667) 75 PG/ML HEMOGLOBIN [id number] 00:00:00 Test Item Value Reference Range Interpretation Comments HEMOGLOBIN A1c (test code = 47508) 10.5 % HEMOGLOBIN [id number] 00:00:00 Test Item Value Reference Range Interpretation Comments HEMOGLOBIN A1c (test code = 63973) 10.5 % HEMOGLOBIN [id number] 00:00:00 Test Item Value Reference Range Interpretation Comments HEMOGLOBIN A1c (test code = 15465) 10.5 % LIPID [id number] 00:00:00 Test Item Value Reference Range Interpretation Comments CHOLESTEROL (test code = 2210) 264 MG/DL TRIGLYCERIDES (test code = 2232) 274 MG/DL HDL CHOLESTEROL (test code = 2220) 48 MG/DL CALC LDL CHOL (test code = 2237) 171 MG/DL RISK RATIO LDL/HDL (test code = 3.56 RATIO 2238) LIPID [id number] 00:00:00 Test Item Value Reference Range Interpretation Comments CHOLESTEROL (test code = 2210) 264 MG/DL TRIGLYCERIDES (test code = 2232) 274 MG/DL HDL CHOLESTEROL (test code = 2220) 48 MG/DL CALC LDL CHOL (test code = 2237) 171 MG/DL RISK RATIO LDL/HDL (test code = 3.56 RATIO 2238) MICROALBUMIN/CREATININE, RANDOM AND [id number] 00:00:00 Test Item Value Reference Range Interpretation Comments CREATININE, URINE, CONC. (test 199.4 MG/DL code = 2072) ALBUMIN, URINE, RANDOM (test code 21.4 MG/DL = 94103) CALC ALBUMIN/CREAT, RND (test 107 MG/G code = 81976) MICROALBUMIN/CREATININE, RANDOM AND [id number] 00:00:00 Test Item Value Reference Range Interpretation Comments CREATININE, URINE, CONC. (test 199.4 MG/DL code = 2072) ALBUMIN, URINE, RANDOM (test code 21.4 MG/DL = 09435) CALC ALBUMIN/CREAT, RND (test 107 MG/G code = 34468) URINALYSIS WITH MICROSCOPIC [ADDED]2021-01-06 00:00:00 Test Item Value Reference Range Interpretation Comments COLOR (test code = 1501) DARK YELLOW APPEARANCE (test code = 1502) TURBID SPECIFIC GRAVITY (test code = 1.024 1503) LEUKOCYTE ESTERASE (test code = NEGATIVE 1504) NITRITE (test code = 1505) NEGATIVE pH (test code = 1506) 5.5 PROTEIN (test code = 1507) 1+ GLUCOSE (test code = 1508) NEGATIVE KETONES (test code = 1509) TRACE UROBILINOGEN (test code = 1510) 0.2 MG/DL BILIRUBIN (test code = 1511) NEGATIVE OCCULT BLOOD (test code = 1512) NEGATIVE WHITE BLOOD CELLS (test code = 0-5 /HPF 1513) RED BLOOD CELLS (test code = 0-2 /HPF 1514) EPITHELIAL CELLS (test code = 0-5 /HPF 11548) BACTERIA (test code = 1515) NONE SEEN CASTS, HYALINE (test code = 1517) TRACE URINALYSIS WITH MICROSCOPIC [ADDED]2021-01-06 00:00:00 Test Item Value Reference Range Interpretation Comments COLOR (test code = 1501) DARK YELLOW APPEARANCE (test code = 1502) TURBID SPECIFIC GRAVITY (test code = 1.024 1503) LEUKOCYTE ESTERASE (test code = NEGATIVE 1504) NITRITE (test code = 1505) NEGATIVE pH (test code = 1506) 5.5 PROTEIN (test code = 1507) 1+ GLUCOSE (test code = 1508) NEGATIVE KETONES (test code = 1509) TRACE UROBILINOGEN (test code = 1510) 0.2 MG/DL BILIRUBIN (test code = 1511) NEGATIVE OCCULT BLOOD (test code = 1512) NEGATIVE WHITE BLOOD CELLS (test code = 0-5 /HPF 1513) RED BLOOD CELLS (test code = 0-2 /HPF 1514) EPITHELIAL CELLS (test code = 0-5 /HPF 05034) BACTERIA (test code = 1515) NONE SEEN CASTS, HYALINE (test code = 1517) TRACE NT-proBNP [ADDED]2021-01-06 00:00:00 Test Item Value Reference Range Interpretation Comments NT-proBNP (test code = 39160) 75 PG/ML NT-proBNP [ADDED]2021-01-06 00:00:00 Test Item Value Reference Range Interpretation Comments NT-proBNP (test code = 89974) 75 PG/ML NT-proBNP [ADDED]2021-01-06 00:00:00 Test Item Value Reference Range Interpretation Comments NT-proBNP (test code = 88867) 75 PG/ML [id number] 00:00:00 Test Item Value Reference Range Interpretation Comments TESTOSTERONE (test code = 2830) 321 NG/DL [id number] 00:00:00 Test Item Value Reference Range Interpretation Comments TESTOSTERONE (test code = 2830) 321 NG/DL [id number] 00:00:00 Test Item Value Reference Range Interpretation Comments TESTOSTERONE (test code = 2830) 321 NG/DL [id number] 00:00:00 Test Item Value Reference Range Interpretation Comments TESTOSTERONE (test code = 2830) 321 NG/DL HEMOGLOBIN [id number] 00:00:00 Test Item Value Reference Range Interpretation Comments HEMOGLOBIN A1c (test code = 92801) 10.9 % LIPID [id number] 00:00:00 Test Item Value Reference Range Interpretation Comments CHOLESTEROL (test code = 2210) 185 MG/DL TRIGLYCERIDES (test code = 2232) 243 MG/DL HDL CHOLESTEROL (test code = 2220) 39 MG/DL CALC LDL CHOL (test code = 2237) 109 MG/DL RISK RATIO LDL/HDL (test code = 2.79 RATIO 2238) LIPID [id number] 00:00:00 Test Item Value Reference Range Interpretation Comments CHOLESTEROL (test code = 2210) 185 MG/DL TRIGLYCERIDES (test code = 2232) 243 MG/DL HDL CHOLESTEROL (test code = 2220) 39 MG/DL CALC LDL CHOL (test code = 2237) 109 MG/DL RISK RATIO LDL/HDL (test code = 2.79 RATIO 2238) COMPREHENSIVE METABOLIC [id number] 00:00:00 Test Item Value Reference Range Interpretation Comments GLUCOSE (test code = 2217) 214 MG/DL BUN (test code = 2208) 15 MG/DL CREATININE (test code = 2214) 0.68 MG/DL eGFR AMER. (test code 122 ML/MIN/1.73 = 50626) eGFR NON- AMER. (test 105 ML/MIN/1.73 code = 60047) CALC BUN/CREAT (test code = 22 RATIO 2235) SODIUM (test code = 2231) 135 MEQ/L POTASSIUM (test code = 2228) 4.5 MEQ/L CHLORIDE (test code = 2215) 97 MEQ/L CARBON DIOXIDE (test code = 25 MEQ/L 2205) CALCIUM (test code = 2209) 9.5 MG/DL PROTEIN, TOTAL (test code = 6.8 G/DL 2228) ALBUMIN (test code = 2201) 4.0 G/DL CALC GLOBULIN (test code = 2.8 G/DL 224) CALC A/G RATIO (test code = 1.4 RATIO 2234) BILIRUBIN, TOTAL (test code = 0.2 MG/DL 2206) ALKALINE PHOSPHATASE (test 106 U/L code = 2204) AST (test code = 2218) 19 U/L ALT (test code = 2219) 24 U/L COMPREHENSIVE METABOLIC [id number] 00:00:00 Test Item Value Reference Range Interpretation Comments GLUCOSE (test code = 2217) 214 MG/DL BUN (test code = 2208) 15 MG/DL CREATININE (test code = 2214) 0.68 MG/DL eGFR AMER. (test code 122 ML/MIN/1.73 = 26651) eGFR NON- AMER. (test 105 ML/MIN/1.73 code = 16695) CALC BUN/CREAT (test code = 22 RATIO 2235) SODIUM (test code = 2231) 135 MEQ/L POTASSIUM (test code = 2228) 4.5 MEQ/L CHLORIDE (test code = 2215) 97 MEQ/L CARBON DIOXIDE (test code = 25 MEQ/L 220) CALCIUM (test code = 2209) 9.5 MG/DL PROTEIN, TOTAL (test code = 6.8 G/DL 2229) ALBUMIN (test code = 2201) 4.0 G/DL CALC GLOBULIN (test code = 2.8 G/DL 2240) CALC A/G RATIO (test code = 1.4 RATIO 2234) BILIRUBIN, TOTAL (test code = 0.2 MG/DL 2206) ALKALINE PHOSPHATASE (test 106 U/L code = 2204) AST (test code = 2218) 19 U/L ALT (test code = 2219) 24 U/L HEMOGLOBIN [id number] 00:00:00 Test Item Value Reference Range Interpretation Comments HEMOGLOBIN A1c (test code = 35768) 10.9 % HEMOGLOBIN [id number] 00:00:00 Test Item Value Reference Range Interpretation Comments HEMOGLOBIN A1c (test code = 46189) 10.9 % HEMOGLOBIN [id number] 00:00:00 Test Item Value Reference Range Interpretation Comments HEMOGLOBIN A1c (test code = 71435) 10.9 % LIPID [id number] 00:00:00 Test Item Value Reference Range Interpretation Comments CHOLESTEROL (test code = 2210) 185 MG/DL TRIGLYCERIDES (test code = 2232) 243 MG/DL HDL CHOLESTEROL (test code = 2220) 39 MG/DL CALC LDL CHOL (test code = 2237) 109 MG/DL RISK RATIO LDL/HDL (test code = 2.79 RATIO 2238) LIPID [id number] 00:00:00 Test Item Value Reference Range Interpretation Comments CHOLESTEROL (test code = 2210) 185 MG/DL TRIGLYCERIDES (test code = 2232) 243 MG/DL HDL CHOLESTEROL (test code = 2220) 39 MG/DL CALC LDL CHOL (test code = 2237) 109 MG/DL RISK RATIO LDL/HDL (test code = 2.79 RATIO 2238) COMPREHENSIVE METABOLIC [id number] 00:00:00 Test Item Value Reference Range Interpretation Comments GLUCOSE (test code = 2217) 214 MG/DL BUN (test code = 2208) 15 MG/DL CREATININE (test code = 2214) 0.68 MG/DL eGFR AMER. (test code 122 ML/MIN/1.73 = 56309) eGFR NON- AMER. (test 105 ML/MIN/1.73 code = 33434) CALC BUN/CREAT (test code = 22 RATIO 2235) SODIUM (test code = 2231) 135 MEQ/L POTASSIUM (test code = 2228) 4.5 MEQ/L CHLORIDE (test code = 2215) 97 MEQ/L CARBON DIOXIDE (test code = 25 MEQ/L 220) CALCIUM (test code = 2209) 9.5 MG/DL PROTEIN, TOTAL (test code = 6.8 G/DL 2228) ALBUMIN (test code = 2201) 4.0 G/DL CALC GLOBULIN (test code = 2.8 G/DL 2240) CALC A/G RATIO (test code = 1.4 RATIO 2234) BILIRUBIN, TOTAL (test code = 0.2 MG/DL 2206) ALKALINE PHOSPHATASE (test 106 U/L code = 2204) AST (test code = 2218) 19 U/L ALT (test code = 2219) 24 U/L COMPREHENSIVE METABOLIC [id number] 00:00:00 Test Item Value Reference Range Interpretation Comments GLUCOSE (test code = 2217) 214 MG/DL BUN (test code = 2208) 15 MG/DL CREATININE (test code = 2214) 0.68 MG/DL eGFR AMER. (test code 122 ML/MIN/1.73 = 05580) eGFR NON- AMER. (test 105 ML/MIN/1.73 code = 26669) CALC BUN/CREAT (test code = 22 RATIO 2235) SODIUM (test code = 2231) 135 MEQ/L POTASSIUM (test code = 2228) 4.5 MEQ/L CHLORIDE (test code = 2215) 97 MEQ/L CARBON DIOXIDE (test code = 25 MEQ/L 2205) CALCIUM (test code = 2209) 9.5 MG/DL PROTEIN, TOTAL (test code = 6.8 G/DL 2228) ALBUMIN (test code = 2201) 4.0 G/DL CALC GLOBULIN (test code = 2.8 G/DL 2240) CALC A/G RATIO (test code = 1.4 RATIO 2234) BILIRUBIN, TOTAL (test code = 0.2 MG/DL 2206) ALKALINE PHOSPHATASE (test 106 U/L code = 2204) AST (test code = 2218) 19 U/L ALT (test code = 2219) 24 U/L HEMOGLOBIN [id number] 00:00:00 Test Item Value Reference Range Interpretation Comments HEMOGLOBIN A1c (test code = 98058) 10.9 % HEMOGLOBIN [id number] 00:00:00 Test Item Value Reference Range Interpretation Comments HEMOGLOBIN A1c (test code = 01449) 10.9 % [id number] 00:00:00 Test Item Value Reference Range Interpretation Comments TESTOSTERONE (test code = 2830) 162 NG/DL [id number] 00:00:00 Test Item Value Reference Range Interpretation Comments TESTOSTERONE (test code = 2830) 162 NG/DL [id number] 00:00:00 Test Item Value Reference Range Interpretation Comments TESTOSTERONE (test code = 2830) 162 NG/DL [id number] 00:00:00 Test Item Value Reference Range Interpretation Comments TESTOSTERONE (test code = 2830) 162 NG/DL [id number] 00:00:00 Test Item Value Reference Range Interpretation Comments TESTOSTERONE (test code = 2830) 120 NG/DL [id number] 00:00:00 Test Item Value Reference Range Interpretation Comments TESTOSTERONE (test code = 2830) 120 NG/DL [id number] 00:00:00 Test Item Value Reference Range Interpretation Comments TESTOSTERONE (test code = 2830) 120 NG/DL [id number] 00:00:00 Test Item Value Reference Range Interpretation Comments TESTOSTERONE (test code = 2830) 120 NG/DL [id number] 00:00:00 Test Item Value Reference Range Interpretation Comments TESTOSTERONE (test code = 2830) 169 NG/DL [id number] 00:00:00 Test Item Value Reference Range Interpretation Comments TESTOSTERONE (test code = 2830) 169 NG/DL [id number] 00:00:00 Test Item Value Reference Range Interpretation Comments TESTOSTERONE (test code = 2830) 169 NG/DL [id number] 00:00:00 Test Item Value Reference Range Interpretation Comments TESTOSTERONE (test code = 2830) 169 NG/DL MICROALBUMIN/CREATININE, RANDOM AND [id number] 00:00:00 Test Item Value Reference Range Interpretation Comments CREATININE, URINE, CONC. (test 96.0 MG/DL code = 2072) ALBUMIN, URINE, RANDOM (test code 11.4 MG/DL = 69238) CALC ALBUMIN/CREAT, RND (test code 119 MG/G = 66572) MICROALBUMIN/CREATININE, RANDOM AND [id number] 00:00:00 Test Item Value Reference Range Interpretation Comments CREATININE, URINE, CONC. (test 96.0 MG/DL code = 2072) ALBUMIN, URINE, RANDOM (test code 11.4 MG/DL = 75203) CALC ALBUMIN/CREAT, RND (test code 119 MG/G = 45319) HEMOGLOBIN [id number] 00:00:00 Test Item Value Reference Range Interpretation Comments HEMOGLOBIN A1c (test code = 98927) 10.5 % HEMOGLOBIN [id number] 00:00:00 Test Item Value Reference Range Interpretation Comments HEMOGLOBIN A1c (test code = 89356) 10.5 % HEMOGLOBIN [id number] 00:00:00 Test Item Value Reference Range Interpretation Comments HEMOGLOBIN A1c (test code = 96378) 10.5 % COMPREHENSIVE METABOLIC [id number] 00:00:00 Test Item Value Reference Range Interpretation Comments GLUCOSE (test code = 2217) 125 MG/DL BUN (test code = 2208) 14 MG/DL CREATININE (test code = 2214) 0.67 MG/DL eGFR AMER. (test code 123 ML/MIN/1.73 = 39842) eGFR NON- AMER. (test 106 ML/MIN/1.73 code = 63035) CALC BUN/CREAT (test code = 21 RATIO 2235) SODIUM (test code = 2231) 138 MEQ/L POTASSIUM (test code = 2228) 4.6 MEQ/L CHLORIDE (test code = 2215) 100 MEQ/L CARBON DIOXIDE (test code = 26 MEQ/L 2205) CALCIUM (test code = 2209) 9.4 MG/DL PROTEIN, TOTAL (test code = 7.1 G/DL 2228) ALBUMIN (test code = 2201) 4.3 G/DL CALC GLOBULIN (test code = 2.8 G/DL 0) CALC A/G RATIO (test code = 1.5 RATIO 2234) BILIRUBIN, TOTAL (test code = 0.2 MG/DL 2206) ALKALINE PHOSPHATASE (test 99 U/L code = 2204) AST (test code = 2218) 19 U/L ALT (test code = 2219) 28 U/L COMPREHENSIVE METABOLIC [id number] 00:00:00 Test Item Value Reference Range Interpretation Comments GLUCOSE (test code = 2217) 125 MG/DL BUN (test code = 2208) 14 MG/DL CREATININE (test code = 2214) 0.67 MG/DL eGFR AMER. (test code 123 ML/MIN/1.73 = 64801) eGFR NON- AMER. (test 106 ML/MIN/1.73 code = 47451) CALC BUN/CREAT (test code = 21 RATIO 2235) SODIUM (test code = 2231) 138 MEQ/L POTASSIUM (test code = 2228) 4.6 MEQ/L CHLORIDE (test code = 2215) 100 MEQ/L CARBON DIOXIDE (test code = 26 MEQ/L 220) CALCIUM (test code = 2209) 9.4 MG/DL PROTEIN, TOTAL (test code = 7.1 G/DL 2228) ALBUMIN (test code = 2201) 4.3 G/DL CALC GLOBULIN (test code = 2.8 G/DL 224) CALC A/G RATIO (test code = 1.5 RATIO 2234) BILIRUBIN, TOTAL (test code = 0.2 MG/DL 2206) ALKALINE PHOSPHATASE (test 99 U/L code = 2204) AST (test code = 2218) 19 U/L ALT (test code = 2219) 28 U/L LIPID [id number] 00:00:00 Test Item Value Reference Range Interpretation Comments CHOLESTEROL (test code = 2210) 204 MG/DL TRIGLYCERIDES (test code = 2232) 199 MG/DL HDL CHOLESTEROL (test code = 2220) 46 MG/DL CALC LDL CHOL (test code = 2237) 126 MG/DL RISK RATIO LDL/HDL (test code = 2.74 RATIO 2238) LIPID [id number] 00:00:00 Test Item Value Reference Range Interpretation Comments CHOLESTEROL (test code = 2210) 204 MG/DL TRIGLYCERIDES (test code = 2232) 199 MG/DL HDL CHOLESTEROL (test code = 2220) 46 MG/DL CALC LDL CHOL (test code = 2237) 126 MG/DL RISK RATIO LDL/HDL (test code = 2.74 RATIO 2238) MICROALBUMIN/CREATININE, RANDOM AND [id number] 00:00:00 Test Item Value Reference Range Interpretation Comments CREATININE, URINE, CONC. (test 96.0 MG/DL code = 2071) ALBUMIN, URINE, RANDOM (test code 11.4 MG/DL = 26630) CALC ALBUMIN/CREAT, RND (test code 119 MG/G = 68340) MICROALBUMIN/CREATININE, RANDOM AND [id number] 00:00:00 Test Item Value Reference Range Interpretation Comments CREATININE, URINE, CONC. (test 96.0 MG/DL code = 2072) ALBUMIN, URINE, RANDOM (test code 11.4 MG/DL = 64484) CALC ALBUMIN/CREAT, RND (test code 119 MG/G = 94499) HEMOGLOBIN [id number] 00:00:00 Test Item Value Reference Range Interpretation Comments HEMOGLOBIN A1c (test code = 60643) 10.5 % HEMOGLOBIN [id number] 00:00:00 Test Item Value Reference Range Interpretation Comments HEMOGLOBIN A1c (test code = 24034) 10.5 % HEMOGLOBIN [id number] 00:00:00 Test Item Value Reference Range Interpretation Comments HEMOGLOBIN A1c (test code = 11959) 10.5 % COMPREHENSIVE METABOLIC [id number] 00:00:00 Test Item Value Reference Range Interpretation Comments GLUCOSE (test code = 2217) 125 MG/DL BUN (test code = 2208) 14 MG/DL CREATININE (test code = 2214) 0.67 MG/DL eGFR AMER. (test code 123 ML/MIN/1.73 = 91844) eGFR NON- AMER. (test 106 ML/MIN/1.73 code = 79471) CALC BUN/CREAT (test code = 21 RATIO 2235) SODIUM (test code = 2231) 138 MEQ/L POTASSIUM (test code = 2228) 4.6 MEQ/L CHLORIDE (test code = 2215) 100 MEQ/L CARBON DIOXIDE (test code = 26 MEQ/L 2205) CALCIUM (test code = 2209) 9.4 MG/DL PROTEIN, TOTAL (test code = 7.1 G/DL 2228) ALBUMIN (test code = 2201) 4.3 G/DL CALC GLOBULIN (test code = 2.8 G/DL 2240) CALC A/G RATIO (test code = 1.5 RATIO 2234) BILIRUBIN, TOTAL (test code = 0.2 MG/DL 2206) ALKALINE PHOSPHATASE (test 99 U/L code = 2204) AST (test code = 2218) 19 U/L ALT (test code = 2219) 28 U/L COMPREHENSIVE METABOLIC [id number] 00:00:00 Test Item Value Reference Range Interpretation Comments GLUCOSE (test code = 2217) 125 MG/DL BUN (test code = 2208) 14 MG/DL CREATININE (test code = 2214) 0.67 MG/DL eGFR AMER. (test code 123 ML/MIN/1.73 = 24356) eGFR NON- AMER. (test 106 ML/MIN/1.73 code = 23631) CALC BUN/CREAT (test code = 21 RATIO 2235) SODIUM (test code = 2231) 138 MEQ/L POTASSIUM (test code = 2228) 4.6 MEQ/L CHLORIDE (test code = 2215) 100 MEQ/L CARBON DIOXIDE (test code = 26 MEQ/L 2205) CALCIUM (test code = 2209) 9.4 MG/DL PROTEIN, TOTAL (test code = 7.1 G/DL 2228) ALBUMIN (test code = 2201) 4.3 G/DL CALC GLOBULIN (test code = 2.8 G/DL 2239) CALC A/G RATIO (test code = 1.5 RATIO 2233) BILIRUBIN, TOTAL (test code = 0.2 MG/DL 2206) ALKALINE PHOSPHATASE (test 99 U/L code = 2204) AST (test code = 2218) 19 U/L ALT (test code = 2219) 28 U/L LIPID [id number] 00:00:00 Test Item Value Reference Range Interpretation Comments CHOLESTEROL (test code = 2210) 204 MG/DL TRIGLYCERIDES (test code = 2232) 199 MG/DL HDL CHOLESTEROL (test code = 2220) 46 MG/DL CALC LDL CHOL (test code = 2237) 126 MG/DL RISK RATIO LDL/HDL (test code = 2.74 RATIO 2238) LIPID [id number] 00:00:00 Test Item Value Reference Range Interpretation Comments CHOLESTEROL (test code = 2210) 204 MG/DL TRIGLYCERIDES (test code = 2232) 199 MG/DL HDL CHOLESTEROL (test code = 2220) 46 MG/DL CALC LDL CHOL (test code = 2237) 126 MG/DL RISK RATIO LDL/HDL (test code = 2.74 RATIO 2238) HEMOGLOBIN [id number] 00:00:00 Test Item Value Reference Range Interpretation Comments HEMOGLOBIN A1c (test code = 37113) 10.2 % HEMOGLOBIN [id number] 00:00:00 Test Item Value Reference Range Interpretation Comments HEMOGLOBIN A1c (test code = 31556) 10.2 % COMPREHENSIVE METABOLIC [id number] 00:00:00 Test Item Value Reference Range Interpretation Comments GLUCOSE (test code = 2217) 407 MG/DL BUN (test code = 2208) 17 MG/DL CREATININE (test code = 2214) 0.70 MG/DL eGFR AMER. (test code 121 ML/MIN/1.73 = 50346) eGFR NON- AMER. (test 104 ML/MIN/1.73 code = 04357) CALC BUN/CREAT (test code = 24 RATIO 2235) SODIUM (test code = 2231) 133 MEQ/L POTASSIUM (test code = 2228) 4.7 MEQ/L CHLORIDE (test code = 2215) 95 MEQ/L CARBON DIOXIDE (test code = 22 MEQ/L 2206) CALCIUM (test code = 2209) 9.5 MG/DL PROTEIN, TOTAL (test code = 7.0 G/DL 222) ALBUMIN (test code = 2201) 4.1 G/DL CALC GLOBULIN (test code = 2.9 G/DL 2240) CALC A/G RATIO (test code = 1.4 RATIO 2234) BILIRUBIN, TOTAL (test code = 0.2 MG/DL 2206) ALKALINE PHOSPHATASE (test 145 U/L code = 2204) AST (test code = 2218) 16 U/L ALT (test code = 2219) 24 U/L COMPREHENSIVE METABOLIC [id number] 00:00:00 Test Item Value Reference Range Interpretation Comments GLUCOSE (test code = 2217) 407 MG/DL BUN (test code = 2208) 17 MG/DL CREATININE (test code = 2214) 0.70 MG/DL eGFR AMER. (test code 121 ML/MIN/1.73 = 33289) eGFR NON- AMER. (test 104 ML/MIN/1.73 code = 05783) CALC BUN/CREAT (test code = 24 RATIO 2235) SODIUM (test code = 2231) 133 MEQ/L POTASSIUM (test code = 2228) 4.7 MEQ/L CHLORIDE (test code = 2215) 95 MEQ/L CARBON DIOXIDE (test code = 22 MEQ/L 2206) CALCIUM (test code = 2209) 9.5 MG/DL PROTEIN, TOTAL (test code = 7.0 G/DL 2228) ALBUMIN (test code = 2201) 4.1 G/DL CALC GLOBULIN (test code = 2.9 G/DL 2240) CALC A/G RATIO (test code = 1.4 RATIO 2234) BILIRUBIN, TOTAL (test code = 0.2 MG/DL 2206) ALKALINE PHOSPHATASE (test 145 U/L code = 2204) AST (test code = 2218) 16 U/L ALT (test code = 2219) 24 U/L LIPID [id number] 00:00:00 Test Item Value Reference Range Interpretation Comments CHOLESTEROL (test code = 2210) 208 MG/DL TRIGLYCERIDES (test code = 2232) 525 MG/DL HDL CHOLESTEROL (test code = 47 MG/DL 2220) CALC LDL CHOL (test code = 2237) (NOTE) MG/DL RISK RATIO LDL/HDL (test code = (NOTE) RATIO 2238) LIPID [id number] 00:00:00 Test Item Value Reference Range Interpretation Comments CHOLESTEROL (test code = 2210) 208 MG/DL TRIGLYCERIDES (test code = 2232) 525 MG/DL HDL CHOLESTEROL (test code = 47 MG/DL 2220) CALC LDL CHOL (test code = 2237) (NOTE) MG/DL RISK RATIO LDL/HDL (test code = (NOTE) RATIO 2238) [id number] 00:00:00 Test Item Value Reference Range Interpretation Comments TESTOSTERONE (test code = 2830) 163 NG/DL [id number] 00:00:00 Test Item Value Reference Range Interpretation Comments TESTOSTERONE (test code = 2830) 163 NG/DL HEMOGLOBIN [id number] 00:00:00 Test Item Value Reference Range Interpretation Comments HEMOGLOBIN A1c (test code = 08781) 10.2 % HEMOGLOBIN [id number] 00:00:00 Test Item Value Reference Range Interpretation Comments HEMOGLOBIN A1c (test code = 41959) 10.2 % HEMOGLOBIN [id number] 00:00:00 Test Item Value Reference Range Interpretation Comments HEMOGLOBIN A1c (test code = 49996) 10.2 % COMPREHENSIVE METABOLIC [id number] 00:00:00 Test Item Value Reference Range Interpretation Comments GLUCOSE (test code = 2217) 407 MG/DL BUN (test code = 2208) 17 MG/DL CREATININE (test code = 2214) 0.70 MG/DL eGFR AMER. (test code 121 ML/MIN/1.73 = 34454) eGFR NON- AMER. (test 104 ML/MIN/1.73 code = 97669) CALC BUN/CREAT (test code = 24 RATIO 2235) SODIUM (test code = 2231) 133 MEQ/L POTASSIUM (test code = 2228) 4.7 MEQ/L CHLORIDE (test code = 2215) 95 MEQ/L CARBON DIOXIDE (test code = 22 MEQ/L 2206) CALCIUM (test code = 2209) 9.5 MG/DL PROTEIN, TOTAL (test code = 7.0 G/DL 2228) ALBUMIN (test code = 2201) 4.1 G/DL CALC GLOBULIN (test code = 2.9 G/DL 2240) CALC A/G RATIO (test code = 1.4 RATIO 2234) BILIRUBIN, TOTAL (test code = 0.2 MG/DL 2206) ALKALINE PHOSPHATASE (test 145 U/L code = 2204) AST (test code = 2218) 16 U/L ALT (test code = 2219) 24 U/L COMPREHENSIVE METABOLIC [id number] 00:00:00 Test Item Value Reference Range Interpretation Comments GLUCOSE (test code = 2217) 407 MG/DL BUN (test code = 2208) 17 MG/DL CREATININE (test code = 2214) 0.70 MG/DL eGFR AMER. (test code 121 ML/MIN/1.73 = 94816) eGFR NON- AMER. (test 104 ML/MIN/1.73 code = 11551) CALC BUN/CREAT (test code = 24 RATIO 2235) SODIUM (test code = 2231) 133 MEQ/L POTASSIUM (test code = 2228) 4.7 MEQ/L CHLORIDE (test code = 2215) 95 MEQ/L CARBON DIOXIDE (test code = 22 MEQ/L 2206) CALCIUM (test code = 2209) 9.5 MG/DL PROTEIN, TOTAL (test code = 7.0 G/DL 2228) ALBUMIN (test code = 2201) 4.1 G/DL CALC GLOBULIN (test code = 2.9 G/DL 2240) CALC A/G RATIO (test code = 1.4 RATIO 2234) BILIRUBIN, TOTAL (test code = 0.2 MG/DL 2207) ALKALINE PHOSPHATASE (test 145 U/L code = 2204) AST (test code = 2218) 16 U/L ALT (test code = 2219) 24 U/L LIPID [id number] 00:00:00 Test Item Value Reference Range Interpretation Comments CHOLESTEROL (test code = 2210) 208 MG/DL TRIGLYCERIDES (test code = 2232) 525 MG/DL HDL CHOLESTEROL (test code = 47 MG/DL 2220) CALC LDL CHOL (test code = 2237) (NOTE) MG/DL RISK RATIO LDL/HDL (test code = (NOTE) RATIO 2238) LIPID [id number] 00:00:00 Test Item Value Reference Range Interpretation Comments CHOLESTEROL (test code = 2210) 208 MG/DL TRIGLYCERIDES (test code = 2232) 525 MG/DL HDL CHOLESTEROL (test code = 47 MG/DL 2220) CALC LDL CHOL (test code = 2237) (NOTE) MG/DL RISK RATIO LDL/HDL (test code = (NOTE) RATIO 2238) [id number] 00:00:00 Test Item Value Reference Range Interpretation Comments TESTOSTERONE (test code = 2830) 163 NG/DL [id number] 00:00:00 Test Item Value Reference Range Interpretation Comments TESTOSTERONE (test code = 2830) 163 NG/DL HEMOGLOBIN [id number] 00:00:00 Test Item Value Reference Range Interpretation Comments HEMOGLOBIN A1c (test code = 85527) 10.2 % HEMOGLOBIN [id number] 00:00:00 Test Item Value Reference Range Interpretation Comments HEMOGLOBIN A1c (test code = 90046) 9.8 % COMPREHENSIVE METABOLIC [id number] 00:00:00 Test Item Value Reference Range Interpretation Comments GLUCOSE (test code = 2217) 215 MG/DL BUN (test code = 2208) 17 MG/DL CREATININE (test code = 2214) 0.62 MG/DL eGFR AMER. (test code 128 ML/MIN/1.73 = 76329) eGFR NON- AMER. (test 110 ML/MIN/1.73 code = 23222) CALC BUN/CREAT (test code = 27 RATIO 2235) SODIUM (test code = 2231) 137 MEQ/L POTASSIUM (test code = 2228) 4.5 MEQ/L CHLORIDE (test code = 2215) 98 MEQ/L CARBON DIOXIDE (test code = 25 MEQ/L 2205) CALCIUM (test code = 2209) 9.6 MG/DL PROTEIN, TOTAL (test code = 6.8 G/DL 222) ALBUMIN (test code = 2201) 4.2 G/DL CALC GLOBULIN (test code = 2.6 G/DL 2240) CALC A/G RATIO (test code = 1.6 RATIO 2234) BILIRUBIN, TOTAL (test code = 0.2 MG/DL 2207) ALKALINE PHOSPHATASE (test 85 U/L code = 2204) AST (test code = 2218) 17 U/L ALT (test code = 2219) 25 U/L COMPREHENSIVE METABOLIC [id number] 00:00:00 Test Item Value Reference Range Interpretation Comments GLUCOSE (test code = 2217) 215 MG/DL BUN (test code = 2208) 17 MG/DL CREATININE (test code = 2214) 0.62 MG/DL eGFR AMER. (test code 128 ML/MIN/1.73 = 27821) eGFR NON- AMER. (test 110 ML/MIN/1.73 code = 56941) CALC BUN/CREAT (test code = 27 RATIO 2235) SODIUM (test code = 2231) 137 MEQ/L POTASSIUM (test code = 2228) 4.5 MEQ/L CHLORIDE (test code = 2215) 98 MEQ/L CARBON DIOXIDE (test code = 25 MEQ/L 2205) CALCIUM (test code = 2209) 9.6 MG/DL PROTEIN, TOTAL (test code = 6.8 G/DL 2228) ALBUMIN (test code = 2201) 4.2 G/DL CALC GLOBULIN (test code = 2.6 G/DL 2240) CALC A/G RATIO (test code = 1.6 RATIO 2234) BILIRUBIN, TOTAL (test code = 0.2 MG/DL 7) ALKALINE PHOSPHATASE (test 85 U/L code = 2204) AST (test code = 2218) 17 U/L ALT (test code = 2219) 25 U/L HEMOGLOBIN [id number] 00:00:00 Test Item Value Reference Range Interpretation Comments HEMOGLOBIN A1c (test code = 34959) 9.8 % HEMOGLOBIN [id number] 00:00:00 Test Item Value Reference Range Interpretation Comments HEMOGLOBIN A1c (test code = 13967) 9.8 % HEMOGLOBIN [id number] 00:00:00 Test Item Value Reference Range Interpretation Comments HEMOGLOBIN A1c (test code = 67800) 9.8 % COMPREHENSIVE METABOLIC [id number] 00:00:00 Test Item Value Reference Range Interpretation Comments GLUCOSE (test code = 2217) 215 MG/DL BUN (test code = 2208) 17 MG/DL CREATININE (test code = 2214) 0.62 MG/DL eGFR AMER. (test code 128 ML/MIN/1.73 = 34789) eGFR NON- AMER. (test 110 ML/MIN/1.73 code = 11549) CALC BUN/CREAT (test code = 27 RATIO 2235) SODIUM (test code = 2231) 137 MEQ/L POTASSIUM (test code = 2228) 4.5 MEQ/L CHLORIDE (test code = 2215) 98 MEQ/L CARBON DIOXIDE (test code = 25 MEQ/L 2205) CALCIUM (test code = 2209) 9.6 MG/DL PROTEIN, TOTAL (test code = 6.8 G/DL 2228) ALBUMIN (test code = 2201) 4.2 G/DL CALC GLOBULIN (test code = 2.6 G/DL 2239) CALC A/G RATIO (test code = 1.6 RATIO 2234) BILIRUBIN, TOTAL (test code = 0.2 MG/DL 2206) ALKALINE PHOSPHATASE (test 85 U/L code = 2204) AST (test code = 2218) 17 U/L ALT (test code = 2219) 25 U/L COMPREHENSIVE METABOLIC [id number] 00:00:00 Test Item Value Reference Range Interpretation Comments GLUCOSE (test code = 2217) 215 MG/DL BUN (test code = 2208) 17 MG/DL CREATININE (test code = 2214) 0.62 MG/DL eGFR AMER. (test code 128 ML/MIN/1.73 = 72346) eGFR NON- AMER. (test 110 ML/MIN/1.73 code = 50593) CALC BUN/CREAT (test code = 27 RATIO 2235) SODIUM (test code = 2231) 137 MEQ/L POTASSIUM (test code = 2228) 4.5 MEQ/L CHLORIDE (test code = 2215) 98 MEQ/L CARBON DIOXIDE (test code = 25 MEQ/L 220) CALCIUM (test code = 2209) 9.6 MG/DL PROTEIN, TOTAL (test code = 6.8 G/DL 2229) ALBUMIN (test code = 2201) 4.2 G/DL CALC GLOBULIN (test code = 2.6 G/DL 2240) CALC A/G RATIO (test code = 1.6 RATIO 2234) BILIRUBIN, TOTAL (test code = 0.2 MG/DL 2207) ALKALINE PHOSPHATASE (test 85 U/L code = 2204) AST (test code = 2218) 17 U/L ALT (test code = 2219) 25 U/L HEMOGLOBIN [id number] 00:00:00 Test Item Value Reference Range Interpretation Comments HEMOGLOBIN A1c (test code = 33563) 9.8 % HEMOGLOBIN [id number] 00:00:00 Test Item Value Reference Range Interpretation Comments HEMOGLOBIN A1c (test code = 27320) 9.8 % HEMOGLOBIN [id number] 00:00:00 Test Item Value Reference Range Interpretation Comments HEMOGLOBIN A1c (test code = 64424) 8.2 % HEMOGLOBIN [id number] 00:00:00 Test Item Value Reference Range Interpretation Comments HEMOGLOBIN A1c (test code = 47511) 8.2 % HEMOGLOBIN [id number] 00:00:00 Test Item Value Reference Range Interpretation Comments HEMOGLOBIN A1c (test code = 07685) 8.2 % HEMOGLOBIN [id number] 00:00:00 Test Item Value Reference Range Interpretation Comments HEMOGLOBIN A1c (test code = 93327) 8.2 % HEMOGLOBIN [id number] 00:00:00 Test Item Value Reference Range Interpretation Comments HEMOGLOBIN A1c (test code = 74327) 8.2 % HEMOGLOBIN [id number] 00:00:00 Test Item Value Reference Range Interpretation Comments HEMOGLOBIN A1c (test code = 00745) 8.2 % CULTURE, [id number] 00:00:00 Test Item Value Reference Range Interpretation Comments CULTURE, ROUTINE (test SPECIMEN NUMBER: code = 05705) [id number] CULTURE, [id number] 00:00:00 Test Item Value Reference Range Interpretation Comments CULTURE, ROUTINE (test SPECIMEN NUMBER: code = 93424) [id number] CULTURE, [id number] 00:00:00 Test Item Value Reference Range Interpretation Comments CULTURE, ROUTINE (test SPECIMEN NUMBER: code = 87913) [id number] CULTURE, [id number] 00:00:00 Test Item Value Reference Range Interpretation Comments CULTURE, ROUTINE (test SPECIMEN NUMBER: code = 23394) [id number] CULTURE, [id number] 00:00:00 Test Item Value Reference Range Interpretation Comments CULTURE, ROUTINE (test SPECIMEN NUMBER: code = 91680) [id number] CULTURE, [id number] 00:00:00 Test Item Value Reference Range Interpretation Comments CULTURE, ROUTINE (test SPECIMEN NUMBER: code = 33756) [id number] HEMOGLOBIN [id number] 00:00:00 Test Item Value Reference Range Interpretation Comments HEMOGLOBIN A1c (test code = 91942) 8.5 % HEMOGLOBIN [id number] 00:00:00 Test Item Value Reference Range Interpretation Comments HEMOGLOBIN A1c (test code = 58908) 8.5 % HEMOGLOBIN [id number] 00:00:00 Test Item Value Reference Range Interpretation Comments HEMOGLOBIN A1c (test code = 82050) 8.5 % HEMOGLOBIN [id number] 00:00:00 Test Item Value Reference Range Interpretation Comments HEMOGLOBIN A1c (test code = 07794) 8.5 % HEMOGLOBIN [id number] 00:00:00 Test Item Value Reference Range Interpretation Comments HEMOGLOBIN A1c (test code = 16458) 8.5 % HEMOGLOBIN [id number] 00:00:00 Test Item Value Reference Range Interpretation Comments HEMOGLOBIN A1c (test code = 81404) 8.5 % MICROALBUMIN/CREATININE, RANDOM AND [id number] 00:00:00 Test Item Value Reference Range Interpretation Comments CREATININE, URINE, CONC. (test 37.3 MG/DL code = 2072) ALBUMIN, URINE, RANDOM (test code 0.7 MG/DL = 05403) CALC ALBUMIN/CREAT, RND (test code 19 MG/G = 36170) COMPREHENSIVE METABOLIC [id number] 00:00:00 Test Item Value Reference Range Interpretation Comments GLUCOSE (test code = 2217) 98 MG/DL BUN (test code = 2208) 10 MG/DL CREATININE (test code = 2214) 0.54 MG/DL eGFR AMER. (test code 136 ML/MIN/1.73 = 63324) eGFR NON- AMER. (test 117 ML/MIN/1.73 code = 77088) CALC BUN/CREAT (test code = 19 RATIO 2235) SODIUM (test code = 2231) 141 MEQ/L POTASSIUM (test code = 2228) 4.5 MEQ/L CHLORIDE (test code = 2215) 102 MEQ/L CARBON DIOXIDE (test code = 27 MEQ/L 2205) CALCIUM (test code = 2209) 9.6 MG/DL PROTEIN, TOTAL (test code = 7.4 G/DL 2228) ALBUMIN (test code = 2201) 4.4 G/DL CALC GLOBULIN (test code = 3.0 G/DL 2240) CALC A/G RATIO (test code = 1.5 RATIO 2234) BILIRUBIN, TOTAL (test code = 0.3 MG/DL 2206) ALKALINE PHOSPHATASE (test 74 U/L code = 2204) AST (test code = 2218) 17 U/L ALT (test code = 2219) 24 U/L COMPREHENSIVE METABOLIC [id number] 00:00:00 Test Item Value Reference Range Interpretation Comments GLUCOSE (test code = 2217) 98 MG/DL BUN (test code = 2208) 10 MG/DL CREATININE (test code = 2214) 0.54 MG/DL eGFR AMER. (test code 136 ML/MIN/1.73 = 68446) eGFR NON- AMER. (test 117 ML/MIN/1.73 code = 55157) CALC BUN/CREAT (test code = 19 RATIO 2235) SODIUM (test code = 2231) 141 MEQ/L POTASSIUM (test code = 2228) 4.5 MEQ/L CHLORIDE (test code = 2215) 102 MEQ/L CARBON DIOXIDE (test code = 27 MEQ/L 2205) CALCIUM (test code = 2209) 9.6 MG/DL PROTEIN, TOTAL (test code = 7.4 G/DL 2228) ALBUMIN (test code = 2201) 4.4 G/DL CALC GLOBULIN (test code = 3.0 G/DL 2240) CALC A/G RATIO (test code = 1.5 RATIO 2234) BILIRUBIN, TOTAL (test code = 0.3 MG/DL 2206) ALKALINE PHOSPHATASE (test 74 U/L code = 2204) AST (test code = 2218) 17 U/L ALT (test code = 2219) 24 U/L HEMOGLOBIN [id number] 00:00:00 Test Item Value Reference Range Interpretation Comments HEMOGLOBIN A1c (test code = 83541) 7.8 % HEMOGLOBIN [id number] 00:00:00 Test Item Value Reference Range Interpretation Comments HEMOGLOBIN A1c (test code = 74514) 7.8 % HEMOGLOBIN [id number] 00:00:00 Test Item Value Reference Range Interpretation Comments HEMOGLOBIN A1c (test code = 38069) 7.8 % LIPID [id number] 00:00:00 Test Item Value Reference Range Interpretation Comments CHOLESTEROL (test code = 2210) 159 MG/DL TRIGLYCERIDES (test code = 2232) 163 MG/DL HDL CHOLESTEROL (test code = 2220) 52 MG/DL CALC LDL CHOL (test code = 2237) 74 MG/DL RISK RATIO LDL/HDL (test code = 1.43 RATIO 2238) LIPID [id number] 00:00:00 Test Item Value Reference Range Interpretation Comments CHOLESTEROL (test code = 2210) 159 MG/DL TRIGLYCERIDES (test code = 2232) 163 MG/DL HDL CHOLESTEROL (test code = 2220) 52 MG/DL CALC LDL CHOL (test code = 2237) 74 MG/DL RISK RATIO LDL/HDL (test code = 1.43 RATIO 2238) MICROALBUMIN/CREATININE, RANDOM AND [id number] 00:00:00 Test Item Value Reference Range Interpretation Comments CREATININE, URINE, CONC. (test 37.3 MG/DL code = 2072) ALBUMIN, URINE, RANDOM (test code 0.7 MG/DL = 89346) CALC ALBUMIN/CREAT, RND (test code 19 MG/G = 49211) MICROALBUMIN/CREATININE, RANDOM AND [id number] 00:00:00 Test Item Value Reference Range Interpretation Comments CREATININE, URINE, CONC. (test 37.3 MG/DL code = 2072) ALBUMIN, URINE, RANDOM (test code 0.7 MG/DL = 90615) CALC ALBUMIN/CREAT, RND (test code 19 MG/G = 38543) COMPREHENSIVE METABOLIC [id number] 00:00:00 Test Item Value Reference Range Interpretation Comments GLUCOSE (test code = 2217) 98 MG/DL BUN (test code = 2208) 10 MG/DL CREATININE (test code = 2214) 0.54 MG/DL eGFR AMER. (test code 136 ML/MIN/1.73 = 22605) eGFR NON- AMER. (test 117 ML/MIN/1.73 code = 94977) CALC BUN/CREAT (test code = 19 RATIO 2235) SODIUM (test code = 2231) 141 MEQ/L POTASSIUM (test code = 2228) 4.5 MEQ/L CHLORIDE (test code = 2215) 102 MEQ/L CARBON DIOXIDE (test code = 27 MEQ/L 2206) CALCIUM (test code = 2209) 9.6 MG/DL PROTEIN, TOTAL (test code = 7.4 G/DL 2228) ALBUMIN (test code = 2201) 4.4 G/DL CALC GLOBULIN (test code = 3.0 G/DL 2240) CALC A/G RATIO (test code = 1.5 RATIO 2234) BILIRUBIN, TOTAL (test code = 0.3 MG/DL 2206) ALKALINE PHOSPHATASE (test 74 U/L code = 220) AST (test code = 2218) 17 U/L ALT (test code = 2219) 24 U/L COMPREHENSIVE METABOLIC [id number] 00:00:00 Test Item Value Reference Range Interpretation Comments GLUCOSE (test code = 2217) 98 MG/DL BUN (test code = 2208) 10 MG/DL CREATININE (test code = 2214) 0.54 MG/DL eGFR AMER. (test code 136 ML/MIN/1.73 = 86691) eGFR NON- AMER. (test 117 ML/MIN/1.73 code = 40740) CALC BUN/CREAT (test code = 19 RATIO 2235) SODIUM (test code = 2231) 141 MEQ/L POTASSIUM (test code = 2228) 4.5 MEQ/L CHLORIDE (test code = 2215) 102 MEQ/L CARBON DIOXIDE (test code = 27 MEQ/L 2206) CALCIUM (test code = 2209) 9.6 MG/DL PROTEIN, TOTAL (test code = 7.4 G/DL 2228) ALBUMIN (test code = 2201) 4.4 G/DL CALC GLOBULIN (test code = 3.0 G/DL 2240) CALC A/G RATIO (test code = 1.5 RATIO 2234) BILIRUBIN, TOTAL (test code = 0.3 MG/DL 2206) ALKALINE PHOSPHATASE (test 74 U/L code = 2204) AST (test code = 2218) 17 U/L ALT (test code = 2219) 24 U/L HEMOGLOBIN [id number] 00:00:00 Test Item Value Reference Range Interpretation Comments HEMOGLOBIN A1c (test code = 22094) 7.8 % HEMOGLOBIN [id number] 00:00:00 Test Item Value Reference Range Interpretation Comments HEMOGLOBIN A1c (test code = 34742) 7.8 % HEMOGLOBIN [id number] 00:00:00 Test Item Value Reference Range Interpretation Comments HEMOGLOBIN A1c (test code = 66676) 7.8 % LIPID [id number] 00:00:00 Test Item Value Reference Range Interpretation Comments CHOLESTEROL (test code = 2210) 159 MG/DL TRIGLYCERIDES (test code = 2232) 163 MG/DL HDL CHOLESTEROL (test code = 2220) 52 MG/DL CALC LDL CHOL (test code = 2237) 74 MG/DL RISK RATIO LDL/HDL (test code = 1.43 RATIO 2238) LIPID [id number] 00:00:00 Test Item Value Reference Range Interpretation Comments CHOLESTEROL (test code = 2210) 159 MG/DL TRIGLYCERIDES (test code = 2232) 163 MG/DL HDL CHOLESTEROL (test code = 2220) 52 MG/DL CALC LDL CHOL (test code = 2237) 74 MG/DL RISK RATIO LDL/HDL (test code = 1.43 RATIO 2238) MICROALBUMIN/CREATININE, RANDOM AND [id number] 00:00:00 Test Item Value Reference Range Interpretation Comments CREATININE, URINE, CONC. (test 37.3 MG/DL code = 2072) ALBUMIN, URINE, RANDOM (test code 0.7 MG/DL = 09636) CALC ALBUMIN/CREAT, RND (test code 19 MG/G = 08222) HEMOGLOBIN A1c [ADDED]2018-04-24 00:00:00 Test Item Value Reference Range Interpretation Comments HEMOGLOBIN A1c (test code = 04731) 9.4 % HEMOGLOBIN A1c [ADDED]2018-04-24 00:00:00 Test Item Value Reference Range Interpretation Comments HEMOGLOBIN A1c (test code = 63517) 9.4 % HEMOGLOBIN A1c [ADDED]2018-04-24 00:00:00 Test Item Value Reference Range Interpretation Comments HEMOGLOBIN A1c (test code = 97445) 9.4 % HEMOGLOBIN A1c [ADDED]2018-04-24 00:00:00 Test Item Value Reference Range Interpretation Comments HEMOGLOBIN A1c (test code = 38996) 9.4 % HEMOGLOBIN A1c [ADDED]2018-04-24 00:00:00 Test Item Value Reference Range Interpretation Comments HEMOGLOBIN A1c (test code = 30466) 9.4 % HEMOGLOBIN A1c [ADDED]2018-04-24 00:00:00 Test Item Value Reference Range Interpretation Comments HEMOGLOBIN A1c (test code = 14963) 9.4 % HEMOGLOBIN [id number] 00:00:00 Test Item Value Reference Range Interpretation Comments HEMOGLOBIN A1c (test code = 64113) 8.3 % HEMOGLOBIN [id number] 00:00:00 Test Item Value Reference Range Interpretation Comments HEMOGLOBIN A1c (test code = 43757) 8.3 % HEMOGLOBIN [id number] 00:00:00 Test Item Value Reference Range Interpretation Comments HEMOGLOBIN A1c (test code = 02213) 8.3 % HEMOGLOBIN [id number] 00:00:00 Test Item Value Reference Range Interpretation Comments HEMOGLOBIN A1c (test code = 47005) 8.3 % HEMOGLOBIN [id number] 00:00:00 Test Item Value Reference Range Interpretation Comments HEMOGLOBIN A1c (test code = 15065) 8.3 % HEMOGLOBIN [id number] 00:00:00 Test Item Value Reference Range Interpretation Comments HEMOGLOBIN A1c (test code = 44128) 8.3 % HEMOGLOBIN [id number] 00:00:00 Test Item Value Reference Range Interpretation Comments HEMOGLOBIN A1c (test code = 04409) 8.5 % HEMOGLOBIN [id number] 00:00:00 Test Item Value Reference Range Interpretation Comments HEMOGLOBIN A1c (test code = 38083) 8.5 % HEMOGLOBIN [id number] 00:00:00 Test Item Value Reference Range Interpretation Comments HEMOGLOBIN A1c (test code = 81923) 8.5 % HEMOGLOBIN [id number] 00:00:00 Test Item Value Reference Range Interpretation Comments HEMOGLOBIN A1c (test code = 80333) 8.5 % HEMOGLOBIN [id number] 00:00:00 Test Item Value Reference Range Interpretation Comments HEMOGLOBIN A1c (test code = 93550) 8.5 % HEMOGLOBIN [id number] 00:00:00 Test Item Value Reference Range Interpretation Comments HEMOGLOBIN A1c (test code = 12027) 8.5 % HEMOGLOBIN [id number] 00:00:00 Test Item Value Reference Range Interpretation Comments HEMOGLOBIN A1c (test code = 87953) 9.3 % HEMOGLOBIN [id number] 00:00:00 Test Item Value Reference Range Interpretation Comments HEMOGLOBIN A1c (test code = 21974) 9.3 % HEMOGLOBIN [id number] 00:00:00 Test Item Value Reference Range Interpretation Comments HEMOGLOBIN A1c (test code = 37728) 9.3 % HEMOGLOBIN [id number] 00:00:00 Test Item Value Reference Range Interpretation Comments HEMOGLOBIN A1c (test code = 33266) 9.3 % HEMOGLOBIN [id number] 00:00:00 Test Item Value Reference Range Interpretation Comments HEMOGLOBIN A1c (test code = 08976) 9.3 % HEMOGLOBIN [id number] 00:00:00 Test Item Value Reference Range Interpretation Comments HEMOGLOBIN A1c (test code = 30045) 9.3 % CULTURE, [id number] 00:00:00 Test Item Value Reference Range Interpretation Comments CULTURE, ROUTINE (test SPECIMEN NUMBER: code = 37765) [id number] CULTURE, [id number] 00:00:00 Test Item Value Reference Range Interpretation Comments CULTURE, ROUTINE (test SPECIMEN NUMBER: code = 49934) [id number] CULTURE, [id number] 00:00:00 Test Item Value Reference Range Interpretation Comments CULTURE, ROUTINE (test SPECIMEN NUMBER: code = 42864) [id number] CULTURE, [id number] 00:00:00 Test Item Value Reference Range Interpretation Comments CULTURE, ROUTINE (test SPECIMEN NUMBER: code = 72352) [id number] CULTURE, [id number] 00:00:00 Test Item Value Reference Range Interpretation Comments CULTURE, ROUTINE (test SPECIMEN NUMBER: code = 21838) [id number] CULTURE, [id number] 00:00:00 Test Item Value Reference Range Interpretation Comments CULTURE, ROUTINE (test SPECIMEN NUMBER: code = 13867) [id number] HEMOGLOBIN [id number] 00:00:00 Test Item Value Reference Range Interpretation Comments HEMOGLOBIN A1c (test code = 82003) 7.1 % HEMOGLOBIN [id number] 00:00:00 Test Item Value Reference Range Interpretation Comments HEMOGLOBIN A1c (test code = 36420) 7.1 % HEMOGLOBIN [id number] 00:00:00 Test Item Value Reference Range Interpretation Comments HEMOGLOBIN A1c (test code = 33702) 7.1 % MICROALBUMIN/CREATININE, RANDOM AND [id number] 00:00:00 Test Item Value Reference Range Interpretation Comments CREATININE, URINE, CONC. (test 98.7 MG/DL code = 2072) MICROALBUMIN, RANDOM (test code = 0.6 MG/DL 16513) CALC MICROALB/CREAT RND (test code 6 MG/G = 24141) MICROALBUMIN/CREATININE, RANDOM AND [id number] 00:00:00 Test Item Value Reference Range Interpretation Comments CREATININE, URINE, CONC. (test 98.7 MG/DL code = 2072) MICROALBUMIN, RANDOM (test code = 0.6 MG/DL 49358) CALC MICROALB/CREAT RND (test code 6 MG/G = 23762) LIPID [id number] 00:00:00 Test Item Value Reference Range Interpretation Comments CHOLESTEROL (test code = 2210) 124 MG/DL TRIGLYCERIDES (test code = 2232) 143 MG/DL HDL CHOLESTEROL (test code = 2220) 54 MG/DL CALC LDL CHOL (test code = 2237) 41 MG/DL RISK RATIO LDL/HDL (test code = 0.77 RATIO 2238) LIPID [id number] 00:00:00 Test Item Value Reference Range Interpretation Comments CHOLESTEROL (test code = 2210) 124 MG/DL TRIGLYCERIDES (test code = 2232) 143 MG/DL HDL CHOLESTEROL (test code = 2220) 54 MG/DL CALC LDL CHOL (test code = 2237) 41 MG/DL RISK RATIO LDL/HDL (test code = 0.77 RATIO 2238) COMPREHENSIVE METABOLIC [id number] 00:00:00 Test Item Value Reference Range Interpretation Comments GLUCOSE (test code = 2217) 240 MG/DL BUN (test code = 2208) 18 MG/DL CREATININE (test code = 2214) 0.60 MG/DL eGFR AMER. (test code 131 ML/MIN/1.73 = 11676) eGFR NON- AMER. (test 113 ML/MIN/1.73 code = 05137) CALC BUN/CREAT (test code = 30 RATIO 2235) SODIUM (test code = 2231) 139 MEQ/L POTASSIUM (test code = 2228) 4.7 MEQ/L CHLORIDE (test code = 2215) 100 MEQ/L CARBON DIOXIDE (test code = 25 MEQ/L 2206) CALCIUM (test code = 2209) 9.4 MG/DL PROTEIN, TOTAL (test code = 6.9 G/DL 222) ALBUMIN (test code = 2201) 4.2 G/DL CALC GLOBULIN (test code = 2.7 G/DL 2240) CALC A/G RATIO (test code = 1.6 RATIO 2234) BILIRUBIN, TOTAL (test code = 0.2 MG/DL 2207) ALKALINE PHOSPHATASE (test 74 U/L code = 2204) AST (test code = 2218) 14 U/L ALT (test code = 2219) 17 U/L COMPREHENSIVE METABOLIC [id number] 00:00:00 Test Item Value Reference Range Interpretation Comments GLUCOSE (test code = 2217) 240 MG/DL BUN (test code = 2208) 18 MG/DL CREATININE (test code = 2214) 0.60 MG/DL eGFR AMER. (test code 131 ML/MIN/1.73 = 73086) eGFR NON- AMER. (test 113 ML/MIN/1.73 code = 59292) CALC BUN/CREAT (test code = 30 RATIO 2235) SODIUM (test code = 2231) 139 MEQ/L POTASSIUM (test code = 2228) 4.7 MEQ/L CHLORIDE (test code = 2215) 100 MEQ/L CARBON DIOXIDE (test code = 25 MEQ/L 2205) CALCIUM (test code = 2209) 9.4 MG/DL PROTEIN, TOTAL (test code = 6.9 G/DL 2228) ALBUMIN (test code = 2201) 4.2 G/DL CALC GLOBULIN (test code = 2.7 G/DL 2240) CALC A/G RATIO (test code = 1.6 RATIO 2234) BILIRUBIN, TOTAL (test code = 0.2 MG/DL 2207) ALKALINE PHOSPHATASE (test 74 U/L code = 2204) AST (test code = 2218) 14 U/L ALT (test code = 2219) 17 U/L HEMOGLOBIN [id number] 00:00:00 Test Item Value Reference Range Interpretation Comments HEMOGLOBIN A1c (test code = 96128) 7.1 % HEMOGLOBIN [id number] 00:00:00 Test Item Value Reference Range Interpretation Comments HEMOGLOBIN A1c (test code = 16762) 7.1 % HEMOGLOBIN [id number] 00:00:00 Test Item Value Reference Range Interpretation Comments HEMOGLOBIN A1c (test code = 16499) 7.1 % MICROALBUMIN/CREATININE, RANDOM AND [id number] 00:00:00 Test Item Value Reference Range Interpretation Comments CREATININE, URINE, CONC. (test 98.7 MG/DL code = 2072) MICROALBUMIN, RANDOM (test code = 0.6 MG/DL 52845) CALC MICROALB/CREAT RND (test code 6 MG/G = 85488) MICROALBUMIN/CREATININE, RANDOM AND [id number] 00:00:00 Test Item Value Reference Range Interpretation Comments CREATININE, URINE, CONC. (test 98.7 MG/DL code = 2072) MICROALBUMIN, RANDOM (test code = 0.6 MG/DL 82623) CALC MICROALB/CREAT RND (test code 6 MG/G = 64749) LIPID [id number] 00:00:00 Test Item Value Reference Range Interpretation Comments CHOLESTEROL (test code = 2210) 124 MG/DL TRIGLYCERIDES (test code = 2232) 143 MG/DL HDL CHOLESTEROL (test code = 2220) 54 MG/DL CALC LDL CHOL (test code = 2237) 41 MG/DL RISK RATIO LDL/HDL (test code = 0.77 RATIO 2238) LIPID [id number] 00:00:00 Test Item Value Reference Range Interpretation Comments CHOLESTEROL (test code = 2210) 124 MG/DL TRIGLYCERIDES (test code = 2232) 143 MG/DL HDL CHOLESTEROL (test code = 2220) 54 MG/DL CALC LDL CHOL (test code = 2237) 41 MG/DL RISK RATIO LDL/HDL (test code = 0.77 RATIO 2238) COMPREHENSIVE METABOLIC [id number] 00:00:00 Test Item Value Reference Range Interpretation Comments GLUCOSE (test code = 2217) 240 MG/DL BUN (test code = 2208) 18 MG/DL CREATININE (test code = 2214) 0.60 MG/DL eGFR AMER. (test code 131 ML/MIN/1.73 = 47400) eGFR NON- AMER. (test 113 ML/MIN/1.73 code = 65713) CALC BUN/CREAT (test code = 30 RATIO 2235) SODIUM (test code = 2231) 139 MEQ/L POTASSIUM (test code = 2228) 4.7 MEQ/L CHLORIDE (test code = 2215) 100 MEQ/L CARBON DIOXIDE (test code = 25 MEQ/L 220) CALCIUM (test code = 2209) 9.4 MG/DL PROTEIN, TOTAL (test code = 6.9 G/DL 2228) ALBUMIN (test code = 2201) 4.2 G/DL CALC GLOBULIN (test code = 2.7 G/DL 2240) CALC A/G RATIO (test code = 1.6 RATIO 2234) BILIRUBIN, TOTAL (test code = 0.2 MG/DL 2206) ALKALINE PHOSPHATASE (test 74 U/L code = 2204) AST (test code = 2218) 14 U/L ALT (test code = 2219) 17 U/L COMPREHENSIVE METABOLIC [id number] 00:00:00 Test Item Value Reference Range Interpretation Comments GLUCOSE (test code = 2217) 240 MG/DL BUN (test code = 2208) 18 MG/DL CREATININE (test code = 2214) 0.60 MG/DL eGFR AMER. (test code 131 ML/MIN/1.73 = 45581) eGFR NON- AMER. (test 113 ML/MIN/1.73 code = 29607) CALC BUN/CREAT (test code = 30 RATIO 2235) SODIUM (test code = 2231) 139 MEQ/L POTASSIUM (test code = 2228) 4.7 MEQ/L CHLORIDE (test code = 2215) 100 MEQ/L CARBON DIOXIDE (test code = 25 MEQ/L 2205) CALCIUM (test code = 2209) 9.4 MG/DL PROTEIN, TOTAL (test code = 6.9 G/DL 2228) ALBUMIN (test code = 2201) 4.2 G/DL CALC GLOBULIN (test code = 2.7 G/DL 2240) CALC A/G RATIO (test code = 1.6 RATIO 2234) BILIRUBIN, TOTAL (test code = 0.2 MG/DL 2206) ALKALINE PHOSPHATASE (test 74 U/L code = 2204) AST (test code = 2218) 14 U/L ALT (test code = 2219) 17 U/L HEMOGLOBIN [id number] 00:00:00 Test Item Value Reference Range Interpretation Comments HEMOGLOBIN A1c (test code = 75015) 10.8 % HEMOGLOBIN [id number] 00:00:00 Test Item Value Reference Range Interpretation Comments HEMOGLOBIN A1c (test code = 84718) 10.8 % HEMOGLOBIN [id number] 00:00:00 Test Item Value Reference Range Interpretation Comments HEMOGLOBIN A1c (test code = 93732) 10.8 % HEMOGLOBIN [id number] 00:00:00 Test Item Value Reference Range Interpretation Comments HEMOGLOBIN A1c (test code = 35594) 10.8 % HEMOGLOBIN [id number] 00:00:00 Test Item Value Reference Range Interpretation Comments HEMOGLOBIN A1c (test code = 25319) 10.8 % HEMOGLOBIN [id number] 00:00:00 Test Item Value Reference Range Interpretation Comments HEMOGLOBIN A1c (test code = 40751) 10.8 % HEMOGLOBIN [id number] 00:00:00 Test Item Value Reference Range Interpretation Comments HEMOGLOBIN A1c (test code = 59621) 11.6 % HEMOGLOBIN [id number] 00:00:00 Test Item Value Reference Range Interpretation Comments HEMOGLOBIN A1c (test code = 93364) 11.6 % HEMOGLOBIN [id number] 00:00:00 Test Item Value Reference Range Interpretation Comments HEMOGLOBIN A1c (test code = 65452) 11.6 % HEMOGLOBIN [id number] 00:00:00 Test Item Value Reference Range Interpretation Comments HEMOGLOBIN A1c (test code = 51079) 11.6 % HEMOGLOBIN [id number] 00:00:00 Test Item Value Reference Range Interpretation Comments HEMOGLOBIN A1c (test code = 93183) 11.6 % HEMOGLOBIN [id number] 00:00:00 Test Item Value Reference Range Interpretation Comments HEMOGLOBIN A1c (test code = 09715) 11.6 % COMPREHENSIVE METABOLIC [id number] 00:00:00 Test Item Value Reference Range Interpretation Comments GLUCOSE (test code = 2217) 354 MG/DL BUN (test code = 2208) 14 MG/DL CREATININE (test code = 2214) 0.57 MG/DL eGFR AMER. (test code 135 ML/MIN/1.73 = 66957) eGFR NON- AMER. (test 116 ML/MIN/1.73 code = 10246) CALC BUN/CREAT (test code = 25 RATIO 2235) SODIUM (test code = 2231) 136 MEQ/L POTASSIUM (test code = 2228) 4.6 MEQ/L CHLORIDE (test code = 2215) 94 MEQ/L CARBON DIOXIDE (test code = 24 MEQ/L 2206) CALCIUM (test code = 2209) 9.5 MG/DL PROTEIN, TOTAL (test code = 6.7 G/DL 222) ALBUMIN (test code = 2201) 4.1 G/DL CALC GLOBULIN (test code = 2.6 G/DL 2240) CALC A/G RATIO (test code = 1.6 RATIO 2234) BILIRUBIN, TOTAL (test code = 0.3 MG/DL 2206) ALKALINE PHOSPHATASE (test 118 U/L code = 2204) AST (test code = 2218) 18 U/L ALT (test code = 2219) 19 U/L COMPREHENSIVE METABOLIC [id number] 00:00:00 Test Item Value Reference Range Interpretation Comments GLUCOSE (test code = 2217) 354 MG/DL BUN (test code = 2208) 14 MG/DL CREATININE (test code = 2214) 0.57 MG/DL eGFR AMER. (test code 135 ML/MIN/1.73 = 82906) eGFR NON- AMER. (test 116 ML/MIN/1.73 code = 02683) CALC BUN/CREAT (test code = 25 RATIO 2235) SODIUM (test code = 2231) 136 MEQ/L POTASSIUM (test code = 2228) 4.6 MEQ/L CHLORIDE (test code = 2215) 94 MEQ/L CARBON DIOXIDE (test code = 24 MEQ/L 6) CALCIUM (test code = 2209) 9.5 MG/DL PROTEIN, TOTAL (test code = 6.7 G/DL 222) ALBUMIN (test code = 2201) 4.1 G/DL CALC GLOBULIN (test code = 2.6 G/DL 2240) CALC A/G RATIO (test code = 1.6 RATIO 2234) BILIRUBIN, TOTAL (test code = 0.3 MG/DL 7) ALKALINE PHOSPHATASE (test 118 U/L code = 2204) AST (test code = 2218) 18 U/L ALT (test code = 2219) 19 U/L HEMOGLOBIN [id number] 00:00:00 Test Item Value Reference Range Interpretation Comments HEMOGLOBIN A1c (test code = 92925) 12.4 % HEMOGLOBIN [id number] 00:00:00 Test Item Value Reference Range Interpretation Comments HEMOGLOBIN A1c (test code = 53783) 12.4 % HEMOGLOBIN [id number] 00:00:00 Test Item Value Reference Range Interpretation Comments HEMOGLOBIN A1c (test code = 88319) 12.4 % LIPID [id number] 00:00:00 Test Item Value Reference Range Interpretation Comments CHOLESTEROL (test code = 2210) 215 MG/DL TRIGLYCERIDES (test code = 2232) 370 MG/DL HDL CHOLESTEROL (test code = 2220) 49 MG/DL CALC LDL CHOL (test code = 2237) 92 MG/DL RISK RATIO LDL/HDL (test code = 1.88 RATIO 2238) LIPID [id number] 00:00:00 Test Item Value Reference Range Interpretation Comments CHOLESTEROL (test code = 2210) 215 MG/DL TRIGLYCERIDES (test code = 2232) 370 MG/DL HDL CHOLESTEROL (test code = 2220) 49 MG/DL CALC LDL CHOL (test code = 2237) 92 MG/DL RISK RATIO LDL/HDL (test code = 1.88 RATIO 2238) COMPREHENSIVE METABOLIC [id number] 00:00:00 Test Item Value Reference Range Interpretation Comments GLUCOSE (test code = 2217) 354 MG/DL BUN (test code = 2208) 14 MG/DL CREATININE (test code = 2214) 0.57 MG/DL eGFR AMER. (test code 135 ML/MIN/1.73 = 17926) eGFR NON- AMER. (test 116 ML/MIN/1.73 code = 09067) CALC BUN/CREAT (test code = 25 RATIO 2235) SODIUM (test code = 2231) 136 MEQ/L POTASSIUM (test code = 2228) 4.6 MEQ/L CHLORIDE (test code = 2215) 94 MEQ/L CARBON DIOXIDE (test code = 24 MEQ/L 2205) CALCIUM (test code = 2209) 9.5 MG/DL PROTEIN, TOTAL (test code = 6.7 G/DL 2228) ALBUMIN (test code = 2201) 4.1 G/DL CALC GLOBULIN (test code = 2.6 G/DL 0) CALC A/G RATIO (test code = 1.6 RATIO 2234) BILIRUBIN, TOTAL (test code = 0.3 MG/DL 2206) ALKALINE PHOSPHATASE (test 118 U/L code = 2204) AST (test code = 2218) 18 U/L ALT (test code = 2219) 19 U/L COMPREHENSIVE METABOLIC [id number] 00:00:00 Test Item Value Reference Range Interpretation Comments GLUCOSE (test code = 2217) 354 MG/DL BUN (test code = 2208) 14 MG/DL CREATININE (test code = 2214) 0.57 MG/DL eGFR AMER. (test code 135 ML/MIN/1.73 = 67215) eGFR NON- AMER. (test 116 ML/MIN/1.73 code = 24440) CALC BUN/CREAT (test code = 25 RATIO 2235) SODIUM (test code = 2231) 136 MEQ/L POTASSIUM (test code = 2228) 4.6 MEQ/L CHLORIDE (test code = 2215) 94 MEQ/L CARBON DIOXIDE (test code = 24 MEQ/L 2205) CALCIUM (test code = 2209) 9.5 MG/DL PROTEIN, TOTAL (test code = 6.7 G/DL 2228) ALBUMIN (test code = 2201) 4.1 G/DL CALC GLOBULIN (test code = 2.6 G/DL 2239) CALC A/G RATIO (test code = 1.6 RATIO 2234) BILIRUBIN, TOTAL (test code = 0.3 MG/DL 2206) ALKALINE PHOSPHATASE (test 118 U/L code = 2204) AST (test code = 2218) 18 U/L ALT (test code = 2219) 19 U/L HEMOGLOBIN [id number] 00:00:00 Test Item Value Reference Range Interpretation Comments HEMOGLOBIN A1c (test code = 49452) 12.4 % HEMOGLOBIN [id number] 00:00:00 Test Item Value Reference Range Interpretation Comments HEMOGLOBIN A1c (test code = 75126) 12.4 % HEMOGLOBIN [id number] 00:00:00 Test Item Value Reference Range Interpretation Comments HEMOGLOBIN A1c (test code = 63510) 12.4 % LIPID [id number] 00:00:00 Test Item Value Reference Range Interpretation Comments CHOLESTEROL (test code = 2210) 215 MG/DL TRIGLYCERIDES (test code = 2232) 370 MG/DL HDL CHOLESTEROL (test code = 2220) 49 MG/DL CALC LDL CHOL (test code = 2237) 92 MG/DL RISK RATIO LDL/HDL (test code = 1.88 RATIO 2238) LIPID [id number] 00:00:00 Test Item Value Reference Range Interpretation Comments CHOLESTEROL (test code = 2210) 215 MG/DL TRIGLYCERIDES (test code = 2232) 370 MG/DL HDL CHOLESTEROL (test code = 2220) 49 MG/DL CALC LDL CHOL (test code = 2237) 92 MG/DL RISK RATIO LDL/HDL (test code = 1.88 RATIO 2238) COMPREHENSIVE METABOLIC [id number] 00:00:00 Test Item Value Reference Range Interpretation Comments GLUCOSE (test code = 2217) 313 MG/DL BUN (test code = 2208) 15 MG/DL CREATININE (test code = 2214) 0.65 MG/DL eGFR AMER. (test code 128 ML/MIN/1.73 = 20595) eGFR NON- AMER. (test 110 ML/MIN/1.73 code = 59086) CALC BUN/CREAT (test code = 23 RATIO 2235) SODIUM (test code = 2231) 138 MEQ/L POTASSIUM (test code = 2228) 4.7 MEQ/L CHLORIDE (test code = 2215) 97 MEQ/L CARBON DIOXIDE (test code = 21 MEQ/L 220) CALCIUM (test code = 2209) 9.4 MG/DL PROTEIN, TOTAL (test code = 6.8 G/DL 2228) ALBUMIN (test code = 2201) 4.5 G/DL CALC GLOBULIN (test code = 2.3 G/DL 2240) CALC A/G RATIO (test code = 2.0 RATIO 2234) BILIRUBIN, TOTAL (test code = 0.3 MG/DL 220) ALKALINE PHOSPHATASE (test 88 U/L code = 2204) AST (test code = 2218) 14 U/L ALT (test code = 2219) 16 U/L LIPID [id number] 00:00:00 Test Item Value Reference Range Interpretation Comments CHOLESTEROL (test code = 2210) 218 MG/DL TRIGLYCERIDES (test code = 2232) 151 MG/DL HDL CHOLESTEROL (test code = 2220) 42 MG/DL CALC LDL CHOL (test code = 2237) 146 MG/DL RISK RATIO LDL/HDL (test code = 3.47 RATIO 2238) LIPID [id number] 00:00:00 Test Item Value Reference Range Interpretation Comments CHOLESTEROL (test code = 2210) 218 MG/DL TRIGLYCERIDES (test code = 2232) 151 MG/DL HDL CHOLESTEROL (test code = 2220) 42 MG/DL CALC LDL CHOL (test code = 2237) 146 MG/DL RISK RATIO LDL/HDL (test code = 3.47 RATIO 2238) CBC W/AUTO [id number] 00:00:00 Test Item Value Reference Range Interpretation Comments WBC (test code = 1001) 4.2 K/UL RBC (test code = 1002) 4.95 M/UL HEMOGLOBIN (test code = 1003) 14.4 G/DL HEMATOCRIT (test code = 1004) 43.0 % MCV (test code = 1005) 86.9 fL MCH (test code = 1006) 29.1 PG MCHC (test code = 1007) 33.5 G/DL RDW (test code = 1038) 13.2 % NEUTROPHILS (test code = 1008) 51.7 % LYMPHOCYTES (test code = 1010) 34.6 % MONOCYTES (test code = 1011) 10.6 % EOSINOPHILS (test code = 1012) 2.4 % BASOPHILS (test code = 1013) 0.7 % PLATELET COUNT (test code = 1015) 231 K/UL CBC W/AUTO [id number] 00:00:00 Test Item Value Reference Range Interpretation Comments WBC (test code = 1001) 4.2 K/UL RBC (test code = 1002) 4.95 M/UL HEMOGLOBIN (test code = 1003) 14.4 G/DL HEMATOCRIT (test code = 1004) 43.0 % MCV (test code = 1005) 86.9 fL MCH (test code = 1006) 29.1 PG MCHC (test code = 1007) 33.5 G/DL RDW (test code = 1038) 13.2 % NEUTROPHILS (test code = 1008) 51.7 % LYMPHOCYTES (test code = 1010) 34.6 % MONOCYTES (test code = 1011) 10.6 % EOSINOPHILS (test code = 1012) 2.4 % BASOPHILS (test code = 1013) 0.7 % PLATELET COUNT (test code = 1015) 231 K/UL CBC W/AUTO [id number] 00:00:00 Test Item Value Reference Range Interpretation Comments WBC (test code = 1001) 4.2 K/UL RBC (test code = 1002) 4.95 M/UL HEMOGLOBIN (test code = 1003) 14.4 G/DL HEMATOCRIT (test code = 1004) 43.0 % MCV (test code = 1005) 86.9 fL MCH (test code = 1006) 29.1 PG MCHC (test code = 1007) 33.5 G/DL RDW (test code = 1038) 13.2 % NEUTROPHILS (test code = 1008) 51.7 % LYMPHOCYTES (test code = 1010) 34.6 % MONOCYTES (test code = 1011) 10.6 % EOSINOPHILS (test code = 1012) 2.4 % BASOPHILS (test code = 1013) 0.7 % PLATELET COUNT (test code = 1015) 231 K/UL HEMOGLOBIN [id number] 00:00:00 Test Item Value Reference Range Interpretation Comments HEMOGLOBIN A1c (test code = 56295) 12.5 % HEMOGLOBIN [id number] 00:00:00 Test Item Value Reference Range Interpretation Comments HEMOGLOBIN A1c (test code = 34822) 12.5 % HEMOGLOBIN [id number] 00:00:00 Test Item Value Reference Range Interpretation Comments HEMOGLOBIN A1c (test code = 28176) 12.5 % [id number] 00:00:00 Test Item Value Reference Range Interpretation Comments TSH (test code = 2821) 1.61 UIU/ML [id number] 00:00:00 Test Item Value Reference Range Interpretation Comments TSH (test code = 2821) 1.61 UIU/ML [id number] 00:00:00 Test Item Value Reference Range Interpretation Comments TSH (test code = 2821) 1.61 UIU/ML PSA, [id number] 00:00:00 Test Item Value Reference Range Interpretation Comments PSA, TOTAL (test code = 2606) 0.43 NG/ML PSA, [id number] 00:00:00 Test Item Value Reference Range Interpretation Comments PSA, TOTAL (test code = 2606) 0.43 NG/ML PSA, [id number] 00:00:00 Test Item Value Reference Range Interpretation Comments PSA, TOTAL (test code = 2606) 0.43 NG/ML MICROALBUMIN/CREATININE, RANDOM AND [id number] 00:00:00 Test Item Value Reference Range Interpretation Comments CREATININE, URINE, CONC. (test 126.2 MG/DL code = 2072) MICROALBUMIN, RANDOM (test code = 2.6 MG/DL 92396) CALC MICROALB/CREAT RND (test 21 MG/G code = 78760) MICROALBUMIN/CREATININE, RANDOM AND [id number] 00:00:00 Test Item Value Reference Range Interpretation Comments CREATININE, URINE, CONC. (test 126.2 MG/DL code = 2072) MICROALBUMIN, RANDOM (test code = 2.6 MG/DL 62621) CALC MICROALB/CREAT RND (test 21 MG/G code = 00126) COMPREHENSIVE METABOLIC [id number] 00:00:00 Test Item Value Reference Range Interpretation Comments GLUCOSE (test code = 2217) 313 MG/DL BUN (test code = 2208) 15 MG/DL CREATININE (test code = 2214) 0.65 MG/DL eGFR AMER. (test code 128 ML/MIN/1.73 = 56957) eGFR NON- AMER. (test 110 ML/MIN/1.73 code = 09951) CALC BUN/CREAT (test code = 23 RATIO 2235) SODIUM (test code = 2231) 138 MEQ/L POTASSIUM (test code = 2228) 4.7 MEQ/L CHLORIDE (test code = 2215) 97 MEQ/L CARBON DIOXIDE (test code = 21 MEQ/L 2206) CALCIUM (test code = 2209) 9.4 MG/DL PROTEIN, TOTAL (test code = 6.8 G/DL 222) ALBUMIN (test code = 2201) 4.5 G/DL CALC GLOBULIN (test code = 2.3 G/DL 2240) CALC A/G RATIO (test code = 2.0 RATIO 2234) BILIRUBIN, TOTAL (test code = 0.3 MG/DL 2206) ALKALINE PHOSPHATASE (test 88 U/L code = 2204) AST (test code = 2218) 14 U/L ALT (test code = 2219) 16 U/L COMPREHENSIVE METABOLIC [id number] 00:00:00 Test Item Value Reference Range Interpretation Comments GLUCOSE (test code = 2217) 313 MG/DL BUN (test code = 2208) 15 MG/DL CREATININE (test code = 2214) 0.65 MG/DL eGFR AMER. (test code 128 ML/MIN/1.73 = 12056) eGFR NON- AMER. (test 110 ML/MIN/1.73 code = 93757) CALC BUN/CREAT (test code = 23 RATIO 2235) SODIUM (test code = 2231) 138 MEQ/L POTASSIUM (test code = 2228) 4.7 MEQ/L CHLORIDE (test code = 2215) 97 MEQ/L CARBON DIOXIDE (test code = 21 MEQ/L 2205) CALCIUM (test code = 2209) 9.4 MG/DL PROTEIN, TOTAL (test code = 6.8 G/DL 2228) ALBUMIN (test code = 2201) 4.5 G/DL CALC GLOBULIN (test code = 2.3 G/DL 224) CALC A/G RATIO (test code = 2.0 RATIO 2234) BILIRUBIN, TOTAL (test code = 0.3 MG/DL 2206) ALKALINE PHOSPHATASE (test 88 U/L code = 2204) AST (test code = 2218) 14 U/L ALT (test code = 2219) 16 U/L LIPID [id number] 00:00:00 Test Item Value Reference Range Interpretation Comments CHOLESTEROL (test code = 2210) 218 MG/DL TRIGLYCERIDES (test code = 2232) 151 MG/DL HDL CHOLESTEROL (test code = 2220) 42 MG/DL CALC LDL CHOL (test code = 2237) 146 MG/DL RISK RATIO LDL/HDL (test code = 3.47 RATIO 2238) LIPID [id number] 00:00:00 Test Item Value Reference Range Interpretation Comments CHOLESTEROL (test code = 2210) 218 MG/DL TRIGLYCERIDES (test code = 2232) 151 MG/DL HDL CHOLESTEROL (test code = 2220) 42 MG/DL CALC LDL CHOL (test code = 2237) 146 MG/DL RISK RATIO LDL/HDL (test code = 3.47 RATIO 2238) CBC W/AUTO [id number] 00:00:00 Test Item Value Reference Range Interpretation Comments WBC (test code = 1001) 4.2 K/UL RBC (test code = 1002) 4.95 M/UL HEMOGLOBIN (test code = 1003) 14.4 G/DL HEMATOCRIT (test code = 1004) 43.0 % MCV (test code = 1005) 86.9 fL MCH (test code = 1006) 29.1 PG MCHC (test code = 1007) 33.5 G/DL RDW (test code = 1038) 13.2 % NEUTROPHILS (test code = 1008) 51.7 % LYMPHOCYTES (test code = 1010) 34.6 % MONOCYTES (test code = 1011) 10.6 % EOSINOPHILS (test code = 1012) 2.4 % BASOPHILS (test code = 1013) 0.7 % PLATELET COUNT (test code = 1015) 231 K/UL CBC W/AUTO [id number] 00:00:00 Test Item Value Reference Range Interpretation Comments WBC (test code = 1001) 4.2 K/UL RBC (test code = 1002) 4.95 M/UL HEMOGLOBIN (test code = 1003) 14.4 G/DL HEMATOCRIT (test code = 1004) 43.0 % MCV (test code = 1005) 86.9 fL MCH (test code = 1006) 29.1 PG MCHC (test code = 1007) 33.5 G/DL RDW (test code = 1038) 13.2 % NEUTROPHILS (test code = 1008) 51.7 % LYMPHOCYTES (test code = 1010) 34.6 % MONOCYTES (test code = 1011) 10.6 % EOSINOPHILS (test code = 1012) 2.4 % BASOPHILS (test code = 1013) 0.7 % PLATELET COUNT (test code = 1015) 231 K/UL CBC W/AUTO [id number] 00:00:00 Test Item Value Reference Range Interpretation Comments WBC (test code = 1001) 4.2 K/UL RBC (test code = 1002) 4.95 M/UL HEMOGLOBIN (test code = 1003) 14.4 G/DL HEMATOCRIT (test code = 1004) 43.0 % MCV (test code = 1005) 86.9 fL MCH (test code = 1006) 29.1 PG MCHC (test code = 1007) 33.5 G/DL RDW (test code = 1038) 13.2 % NEUTROPHILS (test code = 1008) 51.7 % LYMPHOCYTES (test code = 1010) 34.6 % MONOCYTES (test code = 1011) 10.6 % EOSINOPHILS (test code = 1012) 2.4 % BASOPHILS (test code = 1013) 0.7 % PLATELET COUNT (test code = 1015) 231 K/UL HEMOGLOBIN [id number] 00:00:00 Test Item Value Reference Range Interpretation Comments HEMOGLOBIN A1c (test code = 32507) 12.5 % HEMOGLOBIN [id number] 00:00:00 Test Item Value Reference Range Interpretation Comments HEMOGLOBIN A1c (test code = 10423) 12.5 % HEMOGLOBIN [id number] 00:00:00 Test Item Value Reference Range Interpretation Comments HEMOGLOBIN A1c (test code = 55569) 12.5 % [id number] 00:00:00 Test Item Value Reference Range Interpretation Comments TSH (test code = 2821) 1.61 UIU/ML [id number] 00:00:00 Test Item Value Reference Range Interpretation Comments TSH (test code = 2821) 1.61 UIU/ML [id number] 00:00:00 Test Item Value Reference Range Interpretation Comments TSH (test code = 2821) 1.61 UIU/ML PSA, [id number] 00:00:00 Test Item Value Reference Range Interpretation Comments PSA, TOTAL (test code = 2606) 0.43 NG/ML PSA, [id number] 00:00:00 Test Item Value Reference Range Interpretation Comments PSA, TOTAL (test code = 2606) 0.43 NG/ML PSA, [id number] 00:00:00 Test Item Value Reference Range Interpretation Comments PSA, TOTAL (test code = 2606) 0.43 NG/ML MICROALBUMIN/CREATININE, RANDOM AND [id number] 00:00:00 Test Item Value Reference Range Interpretation Comments CREATININE, URINE, CONC. (test 126.2 MG/DL code = 2072) MICROALBUMIN, RANDOM (test code = 2.6 MG/DL 40501) CALC MICROALB/CREAT RND (test 21 MG/G code = 34578) MICROALBUMIN/CREATININE, RANDOM AND [id number] 00:00:00 Test Item Value Reference Range Interpretation Comments CREATININE, URINE, CONC. (test 126.2 MG/DL code = 2072) MICROALBUMIN, RANDOM (test code = 2.6 MG/DL 98976) CALC MICROALB/CREAT RND (test 21 MG/G code = 10655) COMPREHENSIVE METABOLIC [id number] 00:00:00 Test Item Value Reference Range Interpretation Comments GLUCOSE (test code = 2217) 313 MG/DL BUN (test code = 2208) 15 MG/DL CREATININE (test code = 2214) 0.65 MG/DL eGFR AMER. (test code 128 ML/MIN/1.73 = 19258) eGFR NON- AMER. (test 110 ML/MIN/1.73 code = 32794) CALC BUN/CREAT (test code = 23 RATIO 2235) SODIUM (test code = 2231) 138 MEQ/L POTASSIUM (test code = 2228) 4.7 MEQ/L CHLORIDE (test code = 2215) 97 MEQ/L CARBON DIOXIDE (test code = 21 MEQ/L 2205) CALCIUM (test code = 2209) 9.4 MG/DL PROTEIN, TOTAL (test code = 6.8 G/DL 2228) ALBUMIN (test code = 2201) 4.5 G/DL CALC GLOBULIN (test code = 2.3 G/DL 0) CALC A/G RATIO (test code = 2.0 RATIO 2234) BILIRUBIN, TOTAL (test code = 0.3 MG/DL 2206) ALKALINE PHOSPHATASE (test 88 U/L code = 2204) AST (test code = 2218) 14 U/L ALT (test code = 2219) 16 U/L
--- NOTE | 2022-11-26 08:34 | RAD REPORT ---
EXAM DESCRIPTION: RAD - Knee Right 3 View - 11/26/2022 8:02 am CLINICAL HISTORY: PAIN COMPARISON: No comparisons TECHNIQUE: Right knee, 3 views. FINDINGS: No fracture, dislocation or periosteal reaction.No joint effusion seen. No joint space sylvain rowing. Minimal degenerative marginal spurring along the weight-bearing compartments. No soft tissue abnormality. Clinical concerns for internal derangement or occult bony injury could be further assessed with MR im aging. IMPRESSION: No acute osseus abnormality. Minimal degenerative changes.
--- NOTE | 2022-11-26 08:48 | ER ---
Nurse's Notes [facility] Name: Steven Mejia Age: 62 yrs Sex: Male : 1960 Arrival Date: 11/26/2022 Time: 07:26 Bed 2 Private MD: Diagnosis: Pain in right knee;Osteoarthritis of knee, unspecified Presentation: 11/26 07:37 Chief complaint: Patient states: R upper leg pain that has been ongoing x 1 month. ss Denies injury. Coronavirus screen: Client denies travel out of the [place] in the last 14 days. Ebola Screen: Patient denies exposure to infectious person. Patient denies travel to an Ebola-affected area in the 21 days before illness onset. Initial Sepsis Screen: Does the patient meet any 2 criteria? No. Patient's initial sepsis screen is negative. Does the patient have a suspected source of infection? No. Patient's initial sepsis screen is negative. Risk Assessment: Do you want to hurt yourself or someone else? Patient reports no desire to harm self or others. Onset of symptoms was November 19, 2022. 07:37 Method Of Arrival: Ambulatory ss 07:37 Acuity: UZAIR 3 ss Historical: - Allergies: 07:40 No Known Allergies; ss - Home Meds: 07:40 Insulin [Active]; Metformin Oral [Active]; ss - PMHx: 07:40 Diabetes - IDDM; Diabetes mellitus; ss - PSHx: 07:40 R knee; ss - Immunization history:: Client reports having NOT received the Covid vaccine. - Social history:: Smoking status: Patient denies any tobacco usage or history of. - Family history:: not pertinent. - Hospitalizations: : No recent hospitalization is reported. Screenin:05 [facility] ED Fall Risk Assessment (Adult) History of falling in the last 3 months, rs5 including since admission No falls in past 3 months (0 pts). Abuse screen: Denies threats or abuse. Nutritional screening: No deficits noted. Tuberculosis screening: No symptoms or risk factors identified. Assessment: 08:05 General: Appears in no apparent distress. comfortable, Behavior is calm, cooperative. rs5 Pain: Complains of pain in right knee Pain does not radiate. Pain currently is 5 out of 10 on a pain scale. Quality of pain is described as burning, aching, pressure, Pain began one month ago Is intermittent. Neuro: Level of Consciousness is awake, alert, obeys commands, Oriented to person, place, time, situation. Cardiovascular: Heart tones S1 S2 Rhythm is regular. Respiratory: Airway is patent Respiratory effort is even, unlabored. GI: Abdomen is round non-distended. : No signs and/or symptoms were reported regarding the genitourinary system. EENT: No signs and/or symptoms were reported regarding the EENT system. Derm: Skin is dry, Skin is normal, Skin temperature is warm Abscess located on chest is quarter sized, has no drainage, is raised. Musculoskeletal: Range of motion: limited in right knee Reports 10/10 pain when ambulating. 09:01 Reassessment: Patient is alert, oriented x 3, equal unlabored respirations, skin rs5 warm/dry/pink. Vital Signs: 07:37 BP 188 / 83; Pulse 75; Resp 16; Temp 97.5(TE); Pulse Ox 98% on R/A; Weight 108.86 kg; ss Height 5 ft. 9 in. ; Pain 10/10; 08:50 BP 162 / 79; Pulse 66; Resp 18 S; Pulse Ox 99% on R/A; aa5 07:37 Body Mass Index 35.44 (108.86 kg, 175.26 cm) ss 07:37 Pain Scale: Adult ss ED Course: 07:28 Patient arrived in ED. rg4 07:31 Franky Meza MD is Attending Physician. rn 07:39 Triage completed. ss 07:40 Arm band placed on left wrist. ss 07:54 Sadie Dodson, RN is Primary Nurse. aa5 08:02 Shira Rapp, RN is Primary Nurse. iw 08:03 XRAY Knee RIGHT 3 view In Process Unspecified. EDMS 08:03 Scott Ross, ELADIA is Primary Nurse. rs5 08:05 Patient has correct armband on for positive identification. Call light in reach. Side rs5 rails up X 1. 09:04 No provider procedures requiring assistance completed. Patient did not have IV access rs5 during this emergency room visit. Administered Medications: No medications were administered Medication: 09:05 VIS not applicable for this client. rs5 Outcome: 08:48 Discharge ordered by . rn 09:02 Discharged to home ambulatory. rs5 09:02 Condition: stable 09:02 Discharge instructions given to patient, Instructed on discharge instructions, follow up and referral plans. medication usage, Demonstrated understanding of instructions, follow-up care, medications, Prescriptions given X 1. 09:08 Patient left the ED. rs5 Signatures: Dispatcher [employer] EDShira Buckner, RN Franky Ambriz MD MD rn Calderon, Audri, RN RN aa5 Vera Ortega RN RN ss Garcia, Rubi 4 Scott Ross RN RN rs5 Corrections: (The following items were deleted from the chart) 09:05 09:05 Abuse screen: Denies threats or abuse. rs5 rs5 09:05 09:05 [facility] ED Fall Risk Assessment (Adult) History of falling in the last 3 months, rs5 including since admission No falls in past 3 months (0 pts) rs5 09:05 09:05 Nutritional screening: No deficits noted. rs5 rs5 09:05 09:05 Tuberculosis screening: No symptoms or risk factors identified. rs5 rs5
--- NOTE | 2022-11-26 08:48 | EDPHYS ---
Physician Documentation [facility] Name: Steven Mejia Age: 62 yrs Sex: Male : 1960 Arrival Date: 11/26/2022 Time: 07:26 Bed 2 Private MD: ED Physician Franky Meza HPI: 11/26 08:22 This 62 yrs old Male presents to ER via Ambulatory with complaints of Leg Pain.rn 08:22 The patient presents with pain. The complaints affect the right knee. Onset: The rn symptoms/episode began/occurred 1 week(s) ago. Modifying factors: The symptoms are alleviated by nothing. the symptoms are aggravated by weight bearing. Associated signs and symptoms: Pertinent negatives calf tenderness, fever, numbness, swelling, warmth, weakness. Severity of symptoms: At their worst the symptoms were mild, in the emergency department the symptoms are unchanged. The patient has not experienced similar symptoms in the past. The patient has not recently seen a physician. Pt reports pain to inside of right knee, no fall or trauma, no weakness/numbness/swelling/redness/warmth. No fever. Reports doesn't hurt to move it, only when walks on it. . Historical: - Allergies: 07:40 No Known Allergies; ss - Home Meds: 07:40 Insulin [Active]; Metformin Oral [Active]; ss - PMHx: 07:40 Diabetes - IDDM; Diabetes mellitus; ss - PSHx: 07:40 R knee; ss - Immunization history:: Client reports having NOT received the Covid vaccine. - Social history:: Smoking status: Patient denies any tobacco usage or history of. - Family history:: not pertinent. - Hospitalizations: : No recent hospitalization is reported. ROS: 08:22 Constitutional: Negative for fever, chills, and weight loss, Cardiovascular: Negative rn for chest pain, palpitations, and edema, MS/Extremity: + right knee pain Skin: Negative for injury, rash, and discoloration, Neuro: Negative for headache, weakness, numbness, tingling, and seizure. Exam: 08:22 Constitutional: This is a well developed, well nourished patient who is awake, alert, rn and in no acute distress. MS/ Extremity: Pulses equal, no cyanosis. Neurovascular intact. Full, normal range of motion. Equal circumference. No calf tenderness. No pain with ROM of knee or hip. + mild tenderness to palpation medial knee. NO warmth or redness. Vital Signs: 07:37 BP 188 / 83; Pulse 75; Resp 16; Temp 97.5(TE); Pulse Ox 98% on R/A; Weight 108.86 kg; ss Height 5 ft. 9 in. ; Pain 10/10; 08:50 BP 162 / 79; Pulse 66; Resp 18 S; Pulse Ox 99% on R/A; aa5 07:37 Body Mass Index 35.44 (108.86 kg, 175.26 cm) ss 07:37 Pain Scale: Adult ss MDM: 07:31 Patient medically screened. rn 08:47 Differential diagnosis: tendonitis, arthritis. Data reviewed: vital signs, nurses rn notes, radiologic studies, plain films, and as a result, I will discharge patient. Counseling: I had a detailed discussion with the patient and/or guardian regarding: the historical points, exam findings, and any diagnostic results supporting the discharge/admit diagnosis, radiology results, the need for outpatient follow up, to return to the emergency department if symptoms worsen or persist or if there are any questions or concerns that arise at home. Special discussion: I discussed with the patient/guardian in detail that at this point there is no indication for admission to the hospital. It is understood, however, that if the symptoms persist or worsen the patient needs to return immediately for re-evaluation. 11/26 07:39 Order name: XRAY Knee RIGHT 3 view; Complete Time: 08:47 rn Administered Medications: No medications were administered Disposition Summary: 11/26/22 08:48 Discharge Ordered Location: Home rn Problem: new rn Symptoms: have improved rn Condition: Stable rn Diagnosis - Pain in right knee rn - Osteoarthritis of knee, unspecified rn Followup: rn - With: Private Physician - When: As needed - Reason: Recheck today's complaints, Re-evaluation by your physician Discharge Instructions: - Discharge Summary Sheet rn - Joint Pain rn - Arthritis rn Forms: - Medication Reconciliation Form rn - Thank You Letter rn - Antibiotic dietetic intern - Prescription Opioid Use rn - Patient Portal Instructions rn Prescriptions: - Diclofenac Sodium 75 mg Oral tablet,delayed release (DR/EC) - take 1 tablet by ORAL route 2 times per day; 15 tablet; Refills: 0, Product rn Selection Permitted Signatures: Dispatcher [employer] Franky Amezcua MD MD rn Blanchard, Shelby, RN RN ss
[2022-11-26 09:18] VITALS: TEMP 97.5
[2022-11-26 09:20] VITALS: BP 162/79; O2SAT 99
== END 2022-11-26 09:08 | disposition home or self-care (01) ==
LOC: ER 07:26
DX: M17.11 Unilateral primary osteoarthritis, right knee (principal); E11.9 Type 2 diabetes mellitus without complications; Z79.4 Long term (current) use of insulin
CPT/HCPCS: 99283